=== PATIENT | female | born 1960 | race Caucasian/White ===

== ENCOUNTER 2025-01-14 14:12 | Outpatient (AMB) | payer OTHER, SELFPAY ==
--- NOTE | 2025-01-14 14:23 | MHC.OFFVIS ---
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: No Accompanied by: Self / Same As Patient Allergies bee venom protein (honey bee) Allergy (Severe, Verified 01/14/25 08:56) Anaphylaxis atomoxetine Allergy (Unknown, Verified 01/14/25 09:57) Unknown diatrizoate meglumine Allergy (Unknown, Verified 01/14/25 09:57) Unknown diatrizoic acid Allergy (Unknown, Verified 01/14/25 09:57) Difficulty Breathing ferumoxides Allergy (Unknown, Verified 01/14/25 09:57) Difficulty Breathing ferumoxsil Allergy (Unknown, Verified 01/14/25 09:57) Difficulty Breathing gabapentin Allergy (Unknown, Verified 01/14/25 09:57) Mental status change Gadolinium-Containing Contrast Medi Allergy (Unknown, Verified 01/14/25 09:57) Difficulty Breathing gadoteridol Allergy (Unknown, Verified 01/14/25 09:57) Difficulty Breathing gadoversetamide Allergy (Unknown, Verified 01/14/25 09:57) Difficulty Breathing Iodinated Contrast Media Allergy (Unknown, Verified 01/14/25 09:57) Throat swelling iodixanol Allergy (Unknown, Verified 01/14/25 09:57) Difficulty Breathing iohexol Allergy (Unknown, Verified 01/14/25 09:57) Difficulty Breathing iopromide Allergy (Unknown, Verified 01/14/25 09:57) Difficulty Breathing iothalamic acid Allergy (Unknown, Verified 01/14/25 09:57) Difficulty Breathing ioversol Allergy (Unknown, Verified 01/14/25 09:57) Difficulty Breathing levetiracetam Allergy (Unknown, Verified 01/14/25 09:57) Unknown mangafodipir Allergy (Unknown, Verified 01/14/25 09:57) Difficulty Breathing methylphenidate Allergy (Unknown, Verified 01/14/25 09:57) Unknown mold Allergy (Unknown, Verified 01/14/25 09:57) Difficulty Breathing pollen extracts Allergy (Unknown, Verified 01/14/25 09:57) Difficulty Breathing ropinirole Allergy (Unknown, Verified 01/14/25 09:57) Unknown sumatriptan Allergy (Unknown, Verified 01/14/25 08:56) throat swelling topiramate Allergy (Unknown, Verified 01/14/25 09:57) kidney stones [id number] Antimigraine Agents Allergy (Unknown, Verified 01/14/25 09:57) Angioedema cefazolin Adverse Reaction (Unknown, Verified 01/14/25 09:57) GI upset codeine Adverse Reaction (Unknown, Verified 01/14/25 09:57) GI upset naproxen Adverse Reaction (Unknown, Verified 01/14/25 09:57) skin crawling oxybutynin Adverse Reaction (Unknown, Verified 01/14/25 09:57) dry mouth Penicillins Adverse Reaction (Unknown, Verified 01/14/25 09:57) yeast infection aerosol spray Allergy (Unknown, Uncoded 01/14/25 09:57) Difficulty Breathing atomoxetine Allergy (Unknown, Uncoded 01/14/25 09:57) Dyspnea ivory soap Allergy (Unknown, Uncoded 01/14/25 09:57) Itching HPI HPI Chronic pain: Details: The patient is a 64-year-old female presenting with chronic and diffuse pain syndromes. She has a complex medical history involving multiple surgical procedures, including bilateral knee replacements, rotator cuff surgeries, and ankle surgeries, typically due to instability and chronic pain issues. Her generalized pain significantly impacts her daily living activities, with referrals to interventional pain management previously resulting in variable relief. She reports neuropathy and pain in multiple areas including hands, feet, and neck, often associating nerve-related symptoms with her diagnosed condition of sarcoidosis. Multiple interventions have been previously attempted, such as injections, with some temporary relief. Osteopathic and acupuncture methods have provided some benefit, but limited access and insurance coverage restrict usage. Her treatment regimen is further complicated by fibromyalgia and a past history of severe joint degeneration necessitating various orthopedic surgeries. Despite trials with analgesia, ongoing pain remains a significant burden, affecting her functional ability and sleep quality. Patient also reports history of postoperative complications affecting multiple aspects of her daily life, including urinary and fecal incontinence exacerbated by muscle relaxants post-surgery. She previously used Flexeril with success prior to the surgical intervention. Her chronic pain persists, affecting her range of activities such as driving, cooking, and housekeeping tasks. Anxiety and depression management has been further compromised due to recent environmental changes following an inadequately managed relocation, contributing to her increased depression. Despite attempts to maintain her routine activities, including cooking and meal prep, severe pain remains a prohibitive factor. She currently in physical therapy once per week for chronic back pain without significant improvement so far. Patient previously was seen at [facility] and [facility] and received injection with mixed results. She reports she has passed behavioral evaluation at [facility] in August 2024 for plans for SCS trial but has developed left lower extremity pain with swelling. She has upcoming Endovascular evaluation at [facility] on 02/03/25 and therefore SCS trial has been paused. Patient also reports pending cervical spine MRI and Neurosurgical re-evaluation at [facility] for worsening neck pain with radiculopathy. Denies any fever or chills, abdominal or groin pain, bladder or bowel dysfunction, or saddle anesthesia. - Onset: Variable following multiple surgeries over the years - Quality: Described as nerve pain, shooting, piercing, and diffuse body pain - Primary Location: Affects multiple areas including knees, shoulders, neck, hands, feet, and back - Radiation: Spreads from extremities to the core, impacting entire limbs and occasionally head with migraines - Exacerbating Factors: Activity, standing for prolonged periods, weather changes (icy/muddy conditions) - Alleviating Factors: Osteopathic manipulative therapy, acupuncture, rest, and specific pain management interventions - Impact: Severe limitation in daily activities and sleep, increased fall risk and instability - Affect: Pain significantly impacts mood, contributing to emotional distress and frustration. Worsening anxiety and depressive episodes due to home environment and persistent pain issues. - Analgesia: Historical use of multiple analgesics, including injections with limited and temporary efficacy; current regimen details not explicitly provided. Fear of incontinence preventing use of effective muscle relaxants experienced in past. - Adverse Effects: Previous medication, Pregabalin, caused blurred vision and near-fall episodes; no specific current adverse effects reported - Activities of Daily Living: Severe interference with daily activities; reliant on aids for mobility; independent living compromised by pain and fall risk. Severely impacted, difficulties in managing household tasks, pain prevents driving and independent ambulation. - Aberrant Drug Related Behaviors: No current reports or allegations of medication misuse; history of long-term use for surgical pain without evidence of overuse [facility] Medical History (Updated 01/15/25 @ 15:48 by LITTLE Stokes) Chronic neck and back pain Other chronic pain Allodynia Myofascial muscle pain Allergic conjunctivitis Right leg pain Sternal pain Pulmonary nodule Cervical neck pain with evidence of disc disease Weight gain Pain in both shoulders Bilateral wrist pain Bilateral hand pain Bilateral knee pain Poor balance Vertigo Paresthesia of both feet Leg pain, bilateral Chronic pain Fecal incontinence Pain of left breast Candidal intertrigo TMJ (temporomandibular joint disorder) Pain of left upper extremity Chronic right shoulder pain Vaginal pruritus Left-sided chest wall pain Hyperglycemia Recurrent acute sinusitis Immunosuppressed status Inflammatory arthritis Allergic rhinitis Bilateral occipital neuralgia Opioid use disorder Hemorrhoids Obesity IBS (irritable bowel syndrome) Vitamin D deficiency Chronic vasomotor rhinitis Sarcoidosis GERD (gastroesophageal reflux disease) Absence of sensation Arthralgia of hip Hemoglobinopathy Chronic interstitial cystitis Vulvodynia Mild depression Arthropathy of hand Arthropathy of ankle and foot Chronic eczematous otitis externa Abnormal antinuclear antibody titer Spondylosis of cervical spine Recurrent falls Sjogren syndrome Mixed stress and urge urinary incontinence Asthma Trochanteric bursitis Myopathy Fibromyalgia Arthritis Anxiety Infiltrate of lung present on imaging of chest Mild obstructive sleep apnea Restless leg syndrome Migraine Narcolepsy Palpitations Atrophic vaginitis Small fiber neuropathy Rotator cuff tendinitis Attention deficit disorder (ADD) without hyperactivity Lateral epicondylitis of right elbow Chronic neck pain Major depression Neuroforaminal stenosis of lumbar spine Lumbar facet arthropathy Hypertension Hair changes Surgical History (Updated 01/15/25 @ 15:53 by LITTLE Stokes) History of ankle surgery H/O rotator cuff surgery History of total bilateral knee replacement Social History Alcohol intake: current Alcohol intake frequency: holidays/special occasions only Patient Tobacco Use Status: Never used Tobacco Review of Systems Const Details: - Neurological: Reports intermittent muscle spasms. Reports migraines, nerve pain symptoms, and issues with balance leading to falls - Psychological: Reports anxiety and depression due to personal and environmental changes. Reports frustration and dissatisfaction with current pain management progress - Musculoskeletal: Reports chronic pain in shoulder and hands. Reports widespread musculoskeletal pain and weakness; reported numbness and tingling, primarily in extremities - Gastrointestinal: Reports fecal incontinence associated with medication use. Reports past surgical history, sarcoidosis affecting internal organs; effect on digestive health not elaborated - Urinary: Reports urinary incontinence associated with medication use. - General: Reports inability to perform daily activities due to constant pain. -Sleep: Reports difficulty sleeping and frequent use of sedatives such as NyQuil for sleep assistance All systems reviewed & are unremarkable except as noted in HPI and below Physical Exam Vital Signs: Last Vital Signs Pulse 94 01/14/25 14:32 BP 125/76 01/14/25 14:32 Pulse Ox 97 01/14/25 14:32 Oxygen Delivery Method Room Air 01/14/25 14:32 BMI result Body Mass Index 33.2 General: Appears afebrile. Alert and oriented. Mood and affect appropriate. Follows and participates in conversation appropriately. Respiratory effort is unlabored. No cough. Able to transition from sit to stand unassisted. Ambulates with bilaterally normal heel strike and toe off, reports LLE weakness and pain with edema. General: Yes no CVA tenderness Back/Spine/Pelvis Other: Limited lumbar ROM due to pain. Lumbar flexion and extension reproduce moderate-severe pain. Facet loading positive bilaterally. Multiple widespread TTPs 16/16 bilaterally, including upper and lower extremities. Back: no CVA tenderness Cervical Spine: cervical ROM normal, cervical muscular tenderness, pain with cervical ROM, cervical spasm and Cervical spine tenderness Thoracic/Lumbar Spine: thoracic and lumbar spine normal to inspection, No Thoracic/lumbar spine scar(s), pain with thoraco-lumbar ROM, paraspinal muscle tenderness, thoraco-lumbar ROM limited, No thoracic spinal tenderness and lumbar spinal tenderness at L4 and at L5 Pelvis: buttock tenderness bilaterally Sacroiliac joints: bilaterally tender to palpation Extrem General: Yes capillary refill normal, Yes calf tenderness (LLE), No clubbing, No cyanosis and Yes edema (LLE +1-+2) Results Reviewed Results Reviewed: - Tests and Procedures: Prior EMG studies performed at [facility]; results not available - Imaging: Prior MRIs of the spine and joint areas performed at [place]; results not available Assessment & Plan Assessment & Plan (1) Chronic pain syndrome: Code(s): G89.4 - Chronic pain syndrome Category: Medical (2) Chronic neck and back pain: Code(s): M54.2 - Cervicalgia; M54.9 - Dorsalgia, unspecified; G89.29 - Other chronic pain Category: Medical (3) Lumbar facet arthropathy: Code(s): M47.816 - Spondylosis without myelopathy or radiculopathy, lumbar region Category: Medical (4) Neuroforaminal stenosis of lumbar spine: Code(s): M48.061 - Spinal stenosis, lumbar region without neurogenic claudication Category: Medical (5) Paresthesia of both feet: Code(s): R20.2 - Paresthesia of skin Category: Medical (6) Myofascial muscle pain: Code(s): M79.18 - Myalgia, other site Category: Medical (7) Pain and swelling of left lower extremity: Code(s): M79.605 - Pain in left leg; M79.89 - Other specified soft tissue disorders Category: Medical Plan I discussed with the patient the need to follow through scheduled Vascular evaluation at [facility], which is essential before pursuing any spinal cord stimulation interventions. We discussed the previous psychological evaluation's validity, which patient completed in August 2024, as a prerequisite component for potential SCS trial and implant. Patient is intersted in SCS trial as next steps. We will request medical release for prior injections, procedures and spine and joint imaging from [facility], [facility], PCP office and [facility]. I also highlighted the importance of interdisciplinary collaboration through existing specialists across orthopedics, osteopathic medicine and neurology, specifically to refine the treatment approach. Cooperation with these services will help align additional therapeutic measures upon reviewing the Vascular evaluation, supporting a cohesive, targeted treatment foundation for her complex chronic pain. I have informed this patient that I do not offer opioid prescribing. All questions and concerns have been answered and patient agreed with the plan. Follow up after Endovascular evaluation and sooner as needed. Patient was informed and verbally consented to the use of an ambient scribe for clinic note documentation during this visit. Patient Instructions: - Seek mental health support or counseling to address the stress related to environmental changes, depression and anxiety. - Ensure an organized, clutter-free living space as it may alleviate anxiety exacerbations and depressive states. Ensure home safety to minimize fall risk and consider assistance when navigating stairs or uneven surfaces. - Attempt small, manageable daily activities to improve independence. - Complete the scheduled vascular evaluation at [facility] as scheduled. Plan for SCS trial once obtain Vascular clearance and confirm validity of recent behavioral evaluation. - Continue current pain management routine as prescribed and consult me with any exacerbations. - Follow up with referrals as scheduled and maintain communication with all specialists involved, including neurology, neurosurgery and orthopedics. - Maintain a symptom journal to track pain levels and response to interventions before next visit. Coding Level of Care Code New Pt Level 4 (11000) Complex EM visit Add On G2211 Diagnoses Chronic pain syndrome G89.4 Chronic neck and back pain M54.2; M54.9; G89.29 Lumbar facet arthropathy M47.816 Neuroforaminal stenosis of lumbar spine M48.061 Paresthesia of both feet R20.2 Myofascial muscle pain M79.18 Pain and swelling of left lower extremity M79.605; M79.89
[2025-01-14 14:32] VITALS: BP 125/76; PULSE 94; O2SAT 97; BMI 33.2
--- OUTSIDE RECORDS SUMMARY | 2025-01-14 17:28 | XMS_ITS | Data Portability ---
Author Organization [place] [employer] 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 Plan of Treatment Reminders Order Date Submit Date Provider Last Modified By Organization Details Last Modified Time Details Appointments None recorded. Lab microalbum in, urine 2018 019 [facility], [address] [place] [address], [address], 9 20:15:26 CMP, serum or plasma 2018 019 [facility], [address] [place] [address], [address], 9 19:38:07 urinalysis , dipstick 2018 019 [email or web address] In-Office Order, Internal Use Only DO Not Attach Compendium DO Not Attach Compendium, Do Not Delete/merge, [id number] 9 11:06:36 Referral rheumatolo gist referral 2018 019 [email or web address] Not available 9 15:01:07 orthopedic referral 2018 019 BRICE Not available 9 11:58:04 rheumatolo gist referral 2018 019 ochoa Quintero MD, [address] [place] [address] [address], [place], [address], 0 09:07:51 Procedures nebulizer treatment (PROC) 2018 019 KIMBALL In-Office Order, Internal Use Only DO Not Attach Compendium DO Not Attach Compendium, Do Not Delete/merge, [id number] 9 15:02:51 Surgeries None recorded. Imaging XR, chest, 2 view 2018 019 [facility] ([facility] Scheduling), [address], [place], [address], 9 14:54:09 Medication Orders verapamil ER (SR) 120 mg tablet,ext ended release 2018 019 [email or web address] [id number], [address] [facility] [place], [address], 9 15:01:07 omeprazole 20 mg capsule,de layed release 2018 019 INTERFACE [id number], [address] [facility] [place], [address], 9 13:56:02 ipratropiu m 0.5 mg-albuter ol 3 mg (2.5 mg base)/3 mL nebulizati on soln 2018 019 [email or web address] Not available 9 10:42:04 Patient TargetsNo targets recorded. 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 Sj? ? 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 Fibromyalgia Referring Physician: Family Carolynn Wood, [phone] Encounter Date: 03/14/2019 Orthopedic Referral for Pain in right knee Referring Physician: Family Carolynn Wood, [phone] Encounter Date: 03/14/2019 Results Created Date Observation Date Name Description Value Unit Range Abnormal Flag Note LastModifiedBy Organization Detail LastModifiedTime 02/27/20 19 02/26/2019 urina lysis , dipst ick Leukocytes Negati ve Not Available In-Office Order Internal Use Only DO Not Attach Compendium DO Not Attach Compendium, Do Not Delete/merge, 02/26/2019 10:12:39 02/27/20 19 02/26/2019 urina lysis , dipst ick Nitrite negati ve Not Available In-Office Order Internal Use Only DO Not Attach Compendium DO Not Attach Compendium, Do Not Delete/merge, 02/26/2019 10:12:39 02/27/20 19 02/26/2019 urina lysis , dipst ick Urobilinogen .2 Not Available In-Of fice Order Internal Use Only DO Not Attach Compendium DO Not Attach Compendium, Do Not Delete/merge, 02/26/2019 10:12:39 02/27/20 19 02/26/2019 urina lysis , dipst ick Protein Negati ve Not Available In-Office Order Internal Use Only DO Not Attach Compendium DO Not Attach Compendium, Do Not Delete/merge, 02/26/2019 10:12:39 02/27/20 19 02/26/2019 urina lysis , dipst ick pH 7.0 Not Available In-Office Order Internal Use Only DO Not Attach Compendium DO Not Attach Compendium, Do Not Delete/merge, 02/26/2019 10:12:39 02/27/20 19 02/26/2019 urina lysis , dipst ick Blood Non-He molyze d: Trace Not Available In-Office Order Internal Use Only DO Not Attach Compendium DO Not Attach Compendium, Do Not Delete/merge, 02/26/2019 10:12:39 02/27/20 19 02/26/2019 urina lysis , dipst ick Specific [place] 1.020 Not Available In-Off ice Order Internal Use Only DO Not Attach Compendium DO Not Attach Compendium, Do Not Delete/merge, 02/26/2019 10:12:39 02/27/20 19 02/26/2019 urina lysis , dipst ick Ketone Negati ve Not Available In-Office Order Internal Use Only DO Not Attach Compendium DO Not Attach Compendium, Do Not Delete/merge, [id number] 02/26/2019 10:12:39 02/27/2002/26/2019 urina lysis , dipst ick Bilirubin Negati ve Not Available In-Office Order Internal Use Only DO Not Attach Compendium DO Not Attach Compendium, Do Not Delete/merge, [id number] 02/26/2019 10:12:39 02/27/2002/26/2019 urina lysis , dipst ick Glucose Negati ve Not Available In-Office Order Internal Use Only DO Not Attach Compendium DO Not Attach Compendium, Do Not Delete/merge, [id number] 02/26/2019 10:12:39 03/14/2003/14/2019 CMP, serum or plasm a glucose 62 mg/dL 70-100 low Not Available [address] [place] [address], [address], 03/14/2019 19:38:07 03/14/2003/14/2019 CMP, serum or plasm a BUN 12 mg/dL 6-21 normal Not Available [address] [place] [address], [address], 03/14/2019 19:38:07 03/14/2003/14/2019 CMP, serum or plasm a creatinine 0.91 mg/dL 0.0-1. 2 normal Not Available [address] [place] [address], [address], 03/14/2019 19:38:07 03/14/2003/14/2019 CMP, serum or plasm a glomerular filtration rate > 60 normal Units : mL/mi n/1.7 3 m2 Estim ated GFR (eGFR ) shoul d not be used for patie nts with acute kidne y injur y or ESRD (crea tinin e shoul d be at stead y state and stabl e to use). eGFR is calcu lated using the 2009 CKD-E PI creat inine equat ion, which is now the recom elpidio d equat ion to estim ate GFR based on creat inine per lates t KDIGO (Kidn ey Disea se Impro ving Globa l Outco mes) Guide lines . KDIGO recom mends CKD now be class ified based on cause , GFR categ ory, and album inuri a categ ory. GFR categ ories will not be repor cassidy by the lab for G1 or G2 (eGFR >60). GFR categ ories shoul d be assig hannah as: eGFR 45-59 = G3a (mild ly to moder ately decre ased) , eGFR 30-44 = G3b (mode ratel y to sever harman decre ased) , eGFR 15-29 G4 (hanny rely decre ased) , eGFR< 15 G5 (kidn ey failu re). Not Available [address] [place] [address], [address], 03/14/2019 19:38:07 03/14/2003/14/2019 CMP, serum or plasm a calcium 9.4 mg/dL 8.1-10 .4 normal Not Available [address] [place] [address], [address], 03/14/2019 19:38:07 03/14/2003/14/2019 CMP, serum or plasm a total protein 6.8 g/dL 6.1-8. 2 normal Not Available [address] [place] [address], [address], 03/14/2019 19:38:07 03/14/2003/14/2019 CMP, serum or plasm a albumin 3.9 g/dL 2.9-4. 7 normal Not Available [address] [place] [address], [address], 03/14/2019 19:38:07 03/14/2003/14/2019 CMP, serum or plasm a alkaline phosphatase 147 IU/L 18-210 normal Not Available [address] [place] [address], [address], 03/14/2019 19:38:07 03/14/2003/14/2019 CMP, serum or plasm a SGOT (AST) 20 IU/L 15-37 normal Not Available [address] [place] [address], [address], 03/14/2019 19:38:07 03/14/20 19 03/14/2019 CMP, serum or plasm a bilirubin total 0.5 mg/dL 0.2-1. 3 normal Not Available [address] [place] [address], [address], 03/14/2019 19:38:07 03/14/2003/14/2019 CMP, serum or plasm a SGPT (ALT) 27 IU/L 13-56 normal Not Available [address] [place] [address], [address], 03/14/2019 19:38:07 03/14/2003/14/2019 CMP, serum or plasm a sodium 143 mEq/L 135-14 5 normal Not Available [address] [place] [address], [address], 03/14/2019 19:38:07 03/14/2003/14/2019 CMP, serum or plasm a potassium 4.4 mEq/L 3.5-5. 1 normal Not Available [address] [place] [address], [address], 03/14/2019 19:38:07 03/14/2003/14/2019 CMP, serum or plasm a chloride 109 mEq/L 98-112 normal Not Available [address] [place] [address], [address], 03/14/2019 19:38:07 03/14/2003/14/2019 CMP, serum or plasm a CO2 29 mEq/L 20-32 normal Not Available [address] [place] [address], [address], 03/14/2019 19:38:07 03/14/2003/14/2019 CMP, serum or plasm a anion gap 5 mEq/L 5-15 normal Not Available [address] [place] [address], [address], 03/14/2019 19:38:07 03/14/2003/14/2019 micro album in, urine creatinine, urine mg/dL 189 mg/dL normal Not Available [address] [place] [address] [address] [place] [address], [address], 03/14/2019 20:15:26 03/14/20 19 03/14/2019 micro album in, urine microalbumin 20.8 mcg/m L normal The Micro album in/Cr eatin ine ratio only shoul d be used to guide medic al thera py and NOT the Micro album in level alone . Not Available [address] [place] [address] [address] [place] [address], [address], 03/14/2019 20:15:26 03/14/20 19 03/14/2019 micro album in, urine microalb/cre a ratio 11.0 ratio 0.0-34 .2 normal Not Available [address] [place] [address], [address], 03/14/2019 20:15:26 03/14/20 19 03/14/2019 peak flow* Pre (L/min) 200,22 0,230 Not Available In-Office Order Internal Use Only DO Not Attach Compendium DO Not Attach Compendium, Do Not Delete/merge, [id number] 03/14/2019 14:00:50 10/10/20 19 10/10/2019 fecal occul t blood , stool stool occult blood - single NEGATI VE negati ve normal Not Available [address] [place] [address], [address], 10/10/2019 23:43:52 10/10/20 19 10/11/2019 C diff toxin DNA, stool C difficile by PCR, stool NEGATI VE negati ve normal C. Diffi cile targe t DNA seque nces are not detec cassidy. Speci men: Unfor med Stool Comme nt: The C. diffi cile PCR assay is an in vitro diagn ostic test for quali tativ e detec tion of toxin produ cing Clost ridiu m diffi cile direc tly from stool speci mens of patie nts suspe cted of havin g Clost ridiu m diffi cile infec tion. The assay detec ts the toxin B gene (tcdB ). Perfo rmanc e aamnda leiri stics for this indigo were not estab lishe d for patie nts less than 2 years of age. Inhib ition of the Xpert C. diffi cile assay has been obser elena in the [facility] : Zinc Oxide paste and Vagis il cream . Not Available [address] [place] [address] [address] [place] [address], [address], 10/11/2019 09:40:05 10/10/20 19 10/11/2019 gastr ointe carey l patho gens panel , PCR, stool campylobacte r PCR NOT DETECT ED notdet ectd normal Not Available [address] [place] [address], [address], 10/11/2019 10:59:01 10/10/20 19 10/11/2019 gastr ointe carey l patho gens panel , PCR, stool cdif toxin A/B PCR See Commen t notdet ectd normal Test Not Perfo rmed If C.dif ficil e PCR testi ng is neces laure pleas e order C.dif ficil e PCR (CDIF F). Not Available [address] [place] [address], [address], 10/11/2019 10:59:01 10/10/20 19 10/11/2019 gastr ointe carey l patho gens panel , PCR, stool plesiomonas shigelloides PCR NOT DETECT ED notdet ectd normal Not Available [address] [place] [address] [address] [place] [address], [address], 10/11/2019 10:59:01 10/10/20 19 10/11/2019 gastr ointe carey l patho gens panel , PCR, stool salmonella PCR NOT DETECT ED notdet ectd normal Not Available [address] [place] [address], [address], 10/11/2019 10:59:01 10/10/20 19 10/11/2019 gastr ointe carey l patho gens panel , PCR, stool vibro PCR NOT DETECT ED notdet ectd normal Not Available [address] [place] [address], [address], 10/11/2019 10:59:01 10/10/20 19 10/11/2019 gastr ointe carey l patho gens panel , PCR, stool yersinia enterocoliti ca PCR NOT DETECT ED notdet ectd normal Not Available [address] [place] [address], [address], 10/11/2019 10:59:01 10/10/20 19 10/11/2019 gastr ointe carey l patho gens panel , PCR, stool enteroaggreg ative E.coli PCR NOT DETECT ED notdet ectd normal Not Available [address] [place] [address], 6[address], 10/11/2019 10:59:01 10/10/20 19 10/11/2019 gastr ointe carey l patho gens panel , PCR, stool enteropathog enic E.coli PCR NOT DETECT ED notdet ectd normal Not Available [address] [place] [address], [address], 10/11/2019 10:59:01 10/10/20 19 10/11/2019 gastr ointe carey l patho gens panel , PCR, stool enterotoxige aquilino E.coli PCR NOT DETECT ED notdet ectd normal Not Available [address] [place] [address], [address], 10/11/2019 10:59:01 10/10/20 19 10/11/2019 gastr ointe carey l patho gens panel , PCR, stool shiga-like toxin E.coli (stec) NOT DETECT ED notdet ectd normal Not Available [address] [place] [address], [address], 10/11/2019 10:59:01 10/10/20 19 10/11/2019 gastr ointe carey l patho gens panel , PCR, stool shigella/E.c mary (eiec) NOT DETECT ED notdet ectd normal Not Available [address] [place] [address], [address], 10/11/2019 10:59:01 10/10/20 19 10/11/2019 gastr ointe carey l patho gens panel , PCR, stool cryptosporid ium PCR NOT DETECT ED notdet ectd normal Not Available [address] [place] [address], 13596, 10/11/2019 10:59:01 10/10/20 19 10/11/2019 gastr ointe carey l patho gens panel , PCR, stool cyclospora cayetanensis PCR NOT DETECT ED notdet ectd normal Not Available [address] [place] [address], [address]79[address], 10/11/2019 10:59:01 10/10/20 19 10/11/2019 gastr ointe carey l patho gens panel , PCR, stool E. histolytica PCR NOT DETECT ED notdet ectd normal Not Available [address] [place] [address], 912[address], 10/11/2019 10:59:01 10/10/20 19 10/11/2019 gastr ointe carey l patho gens panel , PCR, stool giardia lamblia PCR NOT DETECT ED notdet ectd normal Not Available [address] [place] [address], [address]671, 10/11/2019 10:59:01 10/10/20 19 10/11/2019 gastr ointe carey l patho gens panel , PCR, stool adenovirus F 40/41 PCR NOT DETECT ED notdet ectd normal Not Available [address] [place] [address], 48446, 10/11/2019 10:59:01 10/10/20 19 10/11/2019 gastr ointe carey l patho gens panel , PCR, stool astrovirus PCR NOT DETECT ED notdet ectd normal Not Available [address] [place] [address], [address], 10/11/2019 10:59:01 10/10/20 19 10/11/2019 gastr ointe carey l patho gens panel , PCR, stool norovirus GI/gii PCR NOT DETECT ED notdet ectd normal Not Available [address] [place] [address], 97[address], 10/11/2019 10:59:01 10/10/20 19 10/11/2019 gastr ointe carey l patho gens panel , PCR, stool rotavirus A PCR NOT DETECT ED notdet ectd normal Not Available [address] [place] [address], [address], 10/11/2019 10:59:01 10/10/20 19 10/11/2019 gastr ointe carey l patho gens panel , PCR, stool sapovirus PCR NOT DETECT ED notdet ectd normal ----- ----- -- ADDIT IONAL INFOR MATIO N ----- ----- -- This assay is perfo rmed using the FDA-c leare d FilmA rray GI Panel ([employer] . Not Available [address] [place] [address], [address], 10/11/2019 10:59:01 01/11/20 19 01/10/2019 MAMMO , scree amber, digit al, bilat [facility] IMAGIN G CTR DIAGNO STIC IMAGIN G DEPART MENT [address] [facility] [place]. [address] - Patiilene t: KI YAÑEZ Phone: Exam Date:0 9 Exam: Dig Mammo Screen tita POWER Attend tita Cantu:JACKIE GAN :[birth year] Age/Se x: 58/F Moe hess M.D.:JACKIE GAN E.DSherley Attend tita Cantu: Waqar Cantu: Marlene HUTCHINS X-Ray #: [id number] Locati on: RAD.NA Other Locati on: Clinic al Histor y: ROUTIN E #[id number] 62.001 - DIG MAMMO SCREEN ING MARY MA DI BILATE RAL DIGITA L SCREEN ING MAMMOG BRYSON WITH CAD: 01/11/20 19 Compar rashel is made to exams dated: 01/06/20 18 mammog bryson, 017 mammog bryson, 015 mammog bryson - Irma amato [facility], and 11/08/19 14 mammog bryson - [facility] . There are scatte red fibrog landul ar elemen ts in both breast s. Curren t study was also evalua cassidy with a Comput er Aided Detect ion (CAD) system . No suspic ious masses , calcif icatio ns, or other findin gs are seen in either breast . IMPRES MACIEL: NEGATI VE There is no mammog raphic eviden ce of malign antonio. A 1 year screen ing mammog bryson is recomm ended. RISK ASSESS MENT: Based on the NCI/NS ABP BCRA tool, this patien t's calcul ated lifeti me risk for develo ping breast cancer is 5.9%. The patien t will be notifi ed of the result s by mail. This exam was interp reted at [facility] . Richard Aranda M.D. cl/matthew rad:01/10/2019 14:27: 14 [facility] Techno logist : Irma Dias rn [facility] letter sent: A1 Mammog megan Normal Mammog bryson BI-RAD S: 1 Negati ve Access ion Number : [id number] 2.001 Transc ribed by: [place] Interp reting Physic francisco: RICHARD ARANDA MD Electr onical ly Signed by: RICHARD ARANDA MD on 1427 Rec'd in [facility] on : 1426 Techno logist : DD Exam CPT #: [id number] O,Orde r #: [id number] Report #: [id number] Med Rec#:[id number] Report Status : Signed [email or web address] [facility] (Radiology) [address] [place] [address], [address], 01/11/2019 10:28:20 02/01/20 19 01/31/2019 XR, chest , 2 view [facility] calry ERAZO RN [facility] IMAGIN G CTR DIAGNO STIC IMAGIN G DEPART MENT [address] [place]. [address] - Patien t: KI YAÑEZ Phone: Exam Date:0 9 Exam: CHEST PA/LAT XR Attend tita Cantu:JACKIE GAN :[birth year] Age/Se x: 58/F Orderi jimena Cantu:JACKIE GAN E.DSherley Attend tita Cantu: Waqar Cantu: Marlene HUTCHINS X-Ray #: [id number] Locati on: RAD.NA Other Locati on: Clinic al Histor y: UPPER RESPIR ATORY INFECT ION TWO VIEW CHEST RADIOG RAPHS, 019 2:13 PM CLINIC AL INDICA TION: 58 years old. UPPER RESPIR ATORY INFECT ION. COMPAR RASHEL: 019. IMPRES MACIEL: The cardio medias tinal silhou ette is stable . No pleura l effusi on or pneumo thorax identi fied. No focal consol idatio n or edema identi fied. Statio n: BEXDS1 02 Access ion Number : [id number] 8.001 Transc ribed by: PS Interp reting Physic francisco: ALAINA JOHNSON MD Electr onical ly Signed by: Brayden JOHNSON MD on 1446 Rec'd in [facility] on : 1446 Techno logist : CW Exam CPT #: [id number] O,Orde r #: [id number] Report #: [id number] Med Rec#:M [id number] Report Status : [facility] (Radiology[address], [address], 01/31/2019 16:28:29 05/17/20 19 05/15/2019 XR, lower extre mity No observ ation record ed. [email or web address] Not Available 2018 14:15:53 05/17/20 19 05/15/2019 XR, ankle + foot No observ ation record ed. [email or web address] Not Available 2018 14:16:13 05/17/20 19 05/15/2019 CT, head, w/o contr ast No observ ation record ed. [email or web address] Not Available 05/06 09:27:08 08/15/2008/15/2019 imagi ng/di agnos tic resul t No observ ation record ed. [email or web address] Not Available 2018 14:47:47 Result Notes None recorded. Problems Name Problem SNOMED Code Status Onset Date Resolution Date Notes Provider Name and Address Organization Details Recorded Time Osteoart hritis 275084439 Active 2017 Becky alba [facility] [employer] [facility] 8 13:42:02 Xerostom ia 66060502 Active 2017 Becky alba [facility] [employer] [facility] 8 13:42:10 Neck pain 42007690 Completed 201707/15/2019 Removal Reason: Yany Hoffmann MD [address] [place] [address], [address], [facility] [employer] 9 14:12:35 Obstruct iram sleep apnea syndrome 91198485 Completed 201707/15/2019 Removal Reason: Yany Hoffmann MD [address] [place] [address], [address], [facility] [employer] 9 13:37:52 Sarcoido sis 78086187 Completed 201711/29/2018 ROSALEE Wood-[address], [address], [facility] [employer] 9 20:26:49 Vitamin D deficien 30628353 Active 2017 Becky alba, [facility] [employer] [facility] 8 13:43:02 Fibromya lgia 596412819 Active 2017 Becky Mcclendon null, [facility] 8 13:43:10 Fatigue 97031902 Active 2017 Becky alba, [facility] [employer] 8 13:43:19 Abdomina l pain 21505992 Completed 201707/15/2019 Removal Reason: bharath Hoffmann MD [address] [place], [address], [facility] [employer] [facility] 9 14:12:01 Chronic back pain 589165971 Active 2017 Becky alba, [facility] [employer] [facility] 8 13:43:42 Weight gain 6814912 Active 2017 Becky alba, [facility] [employer] [facility] 8 13:43:53 Irritabl e bowel syndrome 41494619 Active 2017 Becky alba, [facility] [employer] [facility] 8 13:43:59 Anxiety 54115059 Active 2017 Becky alba, [facility] [employer] [facility] 8 13:44:06 Incontin ence 99909702 Completed 201712/27/2018 ROSALEE WoodISAIAS [address] [place] [address], [address], [facility] [employer] [facility] 9 20:24:42 Attentio n deficit hyperact ivity disorder , predomin antly inattent iram type 79507032 Active 2017 Becky Goodwintristin anjali, [facility] [employer] [facility] 8 13:44:31 Asthma 410402960 Active 2017 Becky alba, [facility] [employer] [facility] 8 13:44:37 Migraine 34629348 Completed 201711/29/2018 SHEILA Wood [address] [place] [address], [address], [facility] [employer] 9 20:26:44 Bipolar disorder 29331583 Completed 201707/15/2019 Removal Reason: patient says it is incorrec t Shivani Hoffmann MD [address] [place] [address], [address], [facility] [employer] 9 13:33:07 Pain in right knee Completed 201707/15/2019 Removal Reason: duplicat cipriano Shivani Hoffmann MD [address] [place] [address], [address], [facility] [employer] 9 14:11:43 Snoring 04488226 Active 2017 ROSALEE WoodISAIAS [address] [place] [address], [address], [facility] [employer] 8 20:07:23 Multiple joint pain 24649650 Active 2017 ROSALEE WoodISAIAS [address] [place] [address], [address], [facility] [employer] 8 20:07:25 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 33979838 Active 2017 ROSALEE WoodISAIAS [address] [place] [address], [address], [facility] [employer] 8 20:08:14 Tinnitus 31015725 Active 2017 SHEILA Wood [address] [place] [address], [address], [facility] [employer] 8 20:09:10 Deviated nasal septum 021200662 Active 2017 ROSALEE WoodISAIAS [address] [place] [address], [address], [facility] [employer] 8 20:09:31 Dental caries 71001545 Active 2017 SHEILA Wood [address] [place] [address], [address], [place] [employer] 8 20:09:53 Complex care needs 059333558 Completed 201707/15/2019 Removal Reason: not a diagnosi s Shivani Hoffmann MD [address] [place] [address], [address], [facility] [employer] 9 13:37:08 Female stress incontin ence 94789297 Active [address], [address], [facility] [employer] 8 21:00:26 Lumbar radiculo jasmyn 117425139 Completed 201707/15/2019 Removal Reason: doesn't admit to this Shivani Hoffmann MD [address] [place] [address], [address], [facility] [employer] 9 13:32:16 Chronic tremor 862917521 Active 2017 ROSALEE WoodISAIAS [address] [place] [address], [address], [facility] [employer] 8 21:00:30 Pulmonar y sarcoido sis 85556277 Active 2017 ROSALEE WoodISAIAS [address] [place] [address], [address], [facility] [employer] 8 21:00:34 Abnormal vision 3429746 Active 2017 ROSALEE WoodISAIAS [address] [place] [address], [address], [facility] [employer] 8 21:09:18 Irritati on of ear 918497425 Completed 201707/15/2019 Removal Reason: resolved Shivani Hoffmann MD [address] [place] [address], [phone], [facility] [employer] 9 13:34:26 Candidia sis of mouth [id number] Completed 201711/29/[address], [address], [employer] 9 20:25:40 Gastroes ophageal reflux disease without esophagi tis 307442070 Active 2017 Sally Hutchins [address], [address], [employer] 8 12:08:01 Migraine with aura 6411703 Active 2017 Sally Reed, [address], [address], [employer] 8 12:13:11 Increase d frequenc y of urinatio n 948011566 Active 2017 Sally Hutchins [address], [address], [employer] 8 12:23:17 Easy bruising 628186547 Completed 201707/15/2019 Removal Reason: not an issue Shivani Hoffmann MD [address] [place] [address], [phone], [employer] 9 13:36:05 Family history of diabetes mellitus type 2 574105856 Active 2017 Sally Hutchins [address], [address], [employer] 8 12:25:57 Occult blood detected in feces 67180303 Completed 201703/14/2019 Sally Hutchins [address], [address], [employer] 9 15:01:07 Essentia l hyperten maciel 51083818 Active 2017 Sally Hutchins [address], [address], [employer] 8 12:28:16 Obstruct iram sleep apnea of adult 4448716694 103 Active 2017 stopped CPAP Shivani Hoffmann MD [address] [place] [address], [address], [facility] [employer] 9 13:30:05 Medicati on review done [id number] Completed 201707/15/2019 Removal Reason: not a diagnosi s Shivani Hoffmann MD [address] [place] [address], [address], [employer] 9 14:11:30 Chronic constipa tion 448911753 Completed 201707/15/2019 Removal Reason: error Shivani Hoffmann MD [address] [place] [address], [address], [facility] [employer] 9 13:35:29 Chronic low back pain 361285926 Active [address], [address], [employer] 9 20:22:00 Pain of left ankle joint 5572592723 3068434 Completed 201807/15/2019 Removal Reason: multiple joint symptoms Shivani Hoffmann MD [address] [place] [address], [address], [employer] 9 13:34:06 Pain in left knee Completed 201807/15/2019 Removal Reason: geoffreylicClement Hoffmann MD [address] [place] [address], [address], [employer] 9 14:11:20 Care plan goal agreed [id number] Completed 201807/15/2019 Shivani Hoffmann MD [address] [place] [address], [address], [employer] 9 13:38:07 Chronic pain syndrome 869011694 Active 2018 Shivani Hoffmann MD [address] [place] [address], [phone], [facility] [employer] 9 14:25:10 Problem Notes None recorded. Procedures Surgical History Date Name Laterality Status Provider Name and Address Organization Details Recorded Time Unlisted procedure shoulder completed [address], [address], [facility] [employer] [facility] 05/25/2018 11:55:19 Knee Surgery completed [address], [address], [facility] [employer] [facility] 05/25/2018 11:55:36 Ankle arthroscopy/rivas rgery completed [address], [address], [facility] [employer] [facility] 05/25/2018 11:55:48 Abdominal surgery completed [address], [address], [facility] [employer] [facility] 05/25/2018 11:55:54 Imaging Results Imaging Date Name Status LastModified by Organiz ation Details LastModified Time 01/10/2019 MAMMO, screening, digital, bilateral completed [address] (Radiology) [address] [place] [address], [address], 01/11/2019 10:28:20 01/31/2019 [facility] ([facility] [address] [place] [address], [address], 01/31/2019 16:28:29 05/15/2019 XR, lower extremity completed Information not available 05/21/2019 14:15:53 05/15/2019 XR, ankle + foot completed Information not available 05/21/2019 14:16:13 05/15/2019 CT, head, w/o contrast completed padma Information not available 05/17/2019 09:27:08 08/15/2019 imaging/diagno stic result completed [email or web address] Information not available 08/15/2019 14:47:47 Procedure Notes None recorded. Medical Equipment None Reported. Allergies Allergen ID Allergen Name Allergen Category Reaction Reaction Severity Criticality Documentation Date Start Date Code Code System Note Provider Name and Address Organization Details Recorded Time 75230 Cipro medicatio n Not available Not available Not available 03/07/201803514 3 RxNorm Becky Mcclendon null, [facility] 8 13:50:38 78868 Motrin medicatio n Not available Not available Not available 03/07/201814992 8 RxNorm Becky Mcclendon null, [facility] 8 13:50:45 20601 Easprin medicatio n Not available Not available Not available 03/07/201830285 4 RxNorm Becky Mcclendon null, [facility] 8 13:50:57 36532 codeine medicatio n Not available Not available Not available 03/07/2018 2670 RxNorm Becky Mcclendon null, [facility] 8 13:51:05 66500 Imitrex medicatio n Not available Not available Not available 03/07/201884295 3 RxNorm Becky Mcclendon null, [facility] 8 13:51:12 08203 Product containin g penicilli n (product) medicatio n Not available Not available Not available 03/07/2018 49951 8001 SNOMED Becky Mcclendon null, [facility] 8 13:51:26 09450 cefazolin sodium medicatio n Not available Not available Not available 03/07/201873237 1 RxNorm Becky Mcclendon null, [facility] 8 13:51:33 02207 Strattera medicatio n Not available Not available Not available 03/07/2018 93135 0 RxNorm Becky Mcclendon null, [facility] 8 13:51:41 87217 Celebrex medicatio n Not available Not available Not available 05/25/2018 32002 7 RxNorm Abigail Danbury [address] [place] [address], [phone] [place] [address] 8 11:45:16 94042 trazodone medicatio n Not available Not available Not available 05/25/2018 18376 RxNorm Abigail Danbury [address] [place], [address] , [facility] - [employer] [facility] 8 11:45:41 17878 Topamax medicatio n other Not available Not available 07/06/2018 20062 3 RxNorm laurie Oscar [facility] [place] - [facility] [employer] [facility] 8 16:15:44 Medications Name Sig Start Date Stop Date Status Note LastModified by Organization Details LastModified Time verapamil ER (SR) 120 mg tablet,ex tended release TAKE 1 TABLET BY MOUTH EVERY DAY IN THE MORNING active Not Available Not Available No t Available celecoxib 200 mg capsule active Not Available Not Available Not Available cyclobenz aprine 10 mg tablet TAKE 1 TABLET BY MOUTH EVERY DAY NEEDED 11/29 completed Not Available Not Available Not Available neomycin- polymyxin -hydrocor t 3.5 mg/mL-10, 000 unit/mL-1 % ear solution INSTILL 2 DROPS INTO EACH EAR EVERY 4 HOURS NEEDED 09/12 completed Not Available Not Available Not Available azelastin e 0.05 % eye drops INSTILL 1 DROP INTO BOTH EYES TWICE A DAY active Not Available Not Available No t Available nystatin 100,000 unit/mL oral suspensio n TAKE 5 ML 4 TIMES A DAY BY ORAL ROUTE DIRECTED FOR 10 DAYS 11/29 completed Not Available Not Available Not Available prednison e 10 mg tablet TAKE 3 TABS DAILY FOR 5 DAYS 03/14 completed Not Available Not Available Not Available ipratropi um 0.5 mg-albute rol 3 mg (2.5 mg base)/3 mL nebulizat ion soln Inhale 3 mL by nebuliza tion route for 1 day. 2018 active Not Available Not Available Not Avai lable albuterol sulfate 2.5 mg/3 mL (0.083 %) solution for nebulizat ion INHALE 3ML VIA NEBULIZE R EVERY 4 HOURS NEEDED FOR SHORTNES S OF BREATH OR WHEEZING active Not Available Not Available No t Available cetirizin e 10 mg tablet TAKE 1 TABLET BY MOUTH EVERY DAY active Not Available Not Available No t Available oxybutyni n chloride ER 10 mg tablet,ex tended release 24 hr TAKE 1 TABLET BY MOUTH EVERY DAY 10/02 completed Not Available Not Available Not Available fluconazo le 150 mg tablet TAKE 1 TABLET BY MOUTH ONCE AND REPEAT IN 3 DAYS 10/02 completed Not Available Not Available Not Available levetirac etam 500 mg tablet Take 1 tablet twice a day by oral route. active as needed Not Available Not Available Not Available Patanol 0.1 % eye drops INSTILL 1 DROP INTO AFFECTED EYE(S) BY OPHTHALM IC ROUTE 2 TIMES PER DAY AT AN INTERVAL OF 6 TO 8 HOURS active Not Available Not Available No t Available sucralfat e 1 gram tablet TAKE 1 TABLET BY MOUTH 4 TIMES A DAY BEFORE MEALS AND AT BEDTIME active Not Available Not Available No t Available venlafaxi ne 25 mg tablet TAKE 1 TABLET BY MOUTH AT BEDTIME 05/25 completed Not Available Not Available Not Available ondansetr on HCl 4 mg tablet TAKE 1 TABLET BY MOUTH EVERY 8 HOURS NEEDED FOR NAUSEA active Not Available Not Available No t Available prednison e 20 mg tablet 09/12 completed Not Available Not Available Not Available lidocaine HCl 2 % mucosal jelly APPLY A THIN FILM TOPICALL Y TO THE SORE AREA UP TO 6 TIMES DAILY active Not Available Not Available No t Available acetamino phen 300 mg-codein e 30 mg tablet prn 07/15 completed 03/14/19 prescrib ed by dentist Not Available Not Available Not Available doxepin 10 mg capsule TAKE 1 CAPSULE BY MOUTH EVERY DAY active Not Available Not Available No t Available sulfameth oxazole 800 mg-trimet hoprim 160 mg tablet TAKE 1 TABLET BY MOUTH TWICE A DAY FOR 10 DAYS active Not Available Not Available No t Available tramadol 50 mg tablet active Not Available Not Available Not Available meloxicam 7.5 mg tablet TAKE 1 TABLET BY MOUTH EVERY DAY active Not Available Not Available No t Available oxycodone -acetamin ophen 5 mg-325 mg tablet PLEASE SEE ATTACHED FOR DETAILED DIRECTIO NS active Not Available Not Available No t Available hydromorp chelsea 2 mg tablet TAKE 1 TABLET BY MOUTH THREE TIMES A DAY active Not Available Not Available No t Available lorazepam 0.5 mg tablet TAKE 1 TABLET BY MOUTH EVERY DAY NEEDED 11/29 completed Not Available Not Available Not Available hydrocort isone-heidi tic acid 1 %-2 % ear drops INSTILL 2 DROPS INTO AFFECTED EAR(S) BY OTIC ROUTE 4 TIMES PER DAY 11/29 completed patients insuran e does not cover (200 dollar co payment) Not Available Not Available Not Available baclofen 10 mg tablet TAKE 1 TABLET BY MOUTH 3 TIMES A DAY NEEDED active Not Available Not Available No t Available benzonata te 100 mg capsule TAKE 1 CAPSULE BY MOUTH TWICE DAILY NEEDED FOR COUGH 07/06 completed Not Available Not Available Not Available doxycycli ne monohydra te 100 mg capsule TAKE 1 CAPSULE BY MOUTH TWICE A DAY WITH MEALS FOR 7 DAYS 12/27 completed Not Available Not Available Not Available diclofena c potassium 50 mg tablet TAKE 1 TABLET BY MOUTH 3 TIMES A DAY 05/25 completed Not Available Not Available Not Available omeprazol e 20 mg capsule,d elayed release TAKE 1 CAPSULE BY MOUTH EVERY DAY active Not Available Not Available No t Available monteluka st 10 mg tablet TAKE 1 TABLET BY MOUTH EVERY DAY active Not Available Not Available No t Available clindamyc in 2 % vaginal cream active Not Available Not Available Not Available hydroxyzi ne HCl 25 mg tablet TAKE 1 TABLET BY MOUTH EVERY DAY NEEDED ANXIETY active Not Available Not Available No t Available bisacodyl 5 mg tablet,de layed release TAKE 4 TABLETS BY MOUTH ONE DOSE 10/02 completed Not Available Not Available Not Available nystatin 100,000 unit/gram topical powder APPLY TWICE A DAY DIRECTED FOLLOWIN G TREATMEN T WITH CLOTRIMA ZOLE active Not Available Not Available No t Available diazepam 10 mg tablet TAKE 1 TABLET BY MOUTH THREE TIMES A DAY NEEDED FOR MUSCLE SPASM active Not Available Not Available No t Available epinephri ne 0.3 mg/0.3 mL injection , auto-inje ctor INJECT 1 PEN IM ONCE A SINGLE DOSE MAY REPEAT ONCE active Not Available Not Available No t Available levofloxa estrella 500 mg tablet 07/15 completed Not Available Not Available Not Available oxycodone -acetamin ophen 7.5 mg-325 mg tablet TAKE 1 TABLET BY MOUTH EVERY 6 HOURS NEEDED FOR PAIN active Not Available Not Available No t Available estradiol 0.01% (0.1 mg/gram) vaginal cream APPLY / APPLICAT ORFUL (1GM) VAGINALL Y THREE TIMES WEEKLY active Not Available Not Available No t Available methylpre dnisolone 4 mg tablets in a dose pack USE DIRECTED 02/26 completed Not Available Not Available Not Available albuterol sulfate HFA 90 mcg/actua tion aerosol inhaler INHALE 2 PUFFS BY MOUTH EVERY 6 HOURS NEEDED FOR SHORTNES S OF BREATH OR WHEEZING active Not Available Not Available No t Available ondansetr on 4 mg disintegr ating tablet 07/15 completed Not Available Not Available Not Available SF 5000 Plus 1.1 % dental cream APPLY WITH TOOTHBRU SH TWO TIMES DAILY DO NOT RINSE FOR 30 MINUTES AFTER APPLICAT ION active Not Available Not Available No t Available fluticaso ne propionat e 50 mcg/actua tion nasal spray,julio pension SPRAY 1 SPRAY INTO EACH NOSTRIL TWICE A DAY active Not Available Not Available No t Available clotrimaz ole 1 % topical cream APPLY TO THE AFFECTED AND SURROUND ING AREAS OF SKIN BY TOPICAL ROUTE 2 TIMES PER DAY IN THE MORNING AND EVENING 2017 active Not Available Not Available Not Avai lable dicyclomi ne 10 mg capsule active Not Available Not Available Not Available naproxen 500 mg tablet Take 1 tablet twice a day by oral route with meals. 2017 active Not Available Not Available Not Avai lable Lotemax 0.5 % eye drops,julio pension INSTILL 1 DROP IN EACH EYE 4 TIMES A DAY active Not Available Not Available No t Available verapamil ER 120 mg 24 hr capsule,e xtended release TAKE 1 CAPSULE DAILY BEFORE EATING. active Not Available Not Available No t Available oxycodone 5 mg tablet TAKE 1 TO 2 TABLETS BY MOUTH EVERY 4 TO 6 HOURS NEEDED FOR PAIN 09/12 completed Not Available Not Available Not Available neomycin- polymyxin -hydrocor t 3.5 mg-10,000 unit/mL-1 % ear drops,julio p INSTILL 4 DROPS INTO AFFECTED EAR(S) BY OTIC ROUTE 3 TIMES PER DAY 12/27 completed Not Available Not Available Not Available cyclobenz aprine 5 mg tablet TAKE 1 TABLET BY MOUTH THREE TIMES A DAY NEEDED FOR MUSCLE SPASM active Not Available Not Available No t Available Restasis 0.05 % eye drops in a dropperet te INSTILL 1 DROP INTO BOTH EYES TWICE A DAY active Not Available Not Available No t Available Senna Plus 8.6 mg-50 mg tablet TAKE 2 TABLETS BY MOUTH EVERY DAY NEEDED FOR 30 DAYS 2018 active Not Available Not Available Not Avai lable nitrofura ntoin monohydra te/macroc rystals 100 mg capsule TAKE 1 CAPSULE BY MOUTH TWICE A DAY 07/06 completed Not Available Not Available Not Available duloxetin e 30 mg capsule,d elayed release TAKE 1 CAPSULE BY MOUTH EVERY DAY active Not Available Not Available No t Available duloxetin e 60 mg capsule,d elayed release TAKE 1 CAPSULE BY MOUTH EVERY DAY active Not Available Not Available No t Available Flovent HFA 110 mcg/actua tion aerosol inhaler USE 2 INHALATI ONS TWICE A DAY active Not Available Not Available No t Available pregabali n 50 mg capsule TAKE 1 CAPSULE BY MOUTH TWICE A DAY active Not Available Not Available No t Available pregabali n 75 mg capsule TAKE 1 CAPSULE BY MOUTH THREE TIMES A DAY active Not Available Not Available No t Available albuterol sulfate 05/25 completed Not Available Not Available Not Available chlorophy ll copper complex 02/26 completed Not Available Not Available Not Available ondansetr on 05/25 completed Not Available Not Available Not Available fluocinol one acetonide oil 0.01 % ear drops INSTILL 5 DROPS TO AFFECTED EAR TWICE DAILY FOR NO MORE THAN 1-2 WEEKS active Not Available Not Available No t Available Alaway 0.025 % (0.035 %) eye drops INSTILL 1 DROP IN EACH EYE TWICE DAILY NEEDED. active Not Available Not Available No t Available Vitamin D3 50 mcg (2,000 unit) tablet TAKE 1 TABLET BY MOUTH EVERY DAY active Not Available Not Available No t Available Flovent Diskus 250 mcg/actua tion powder for inhalatio n USE 1 INHALATI ON BY MOUTH TWICE A DAY 02/26 completed Not Available Not Available Not Available butalbita l-acetami nophen-ca ffeine 50 mg-300 mg-40 mg capsule TAKE 1 CAPSULE BY MOUTH NEEDED FOR HEADACHE LIMIT ONE DAILY 07/06 completed Not Available Not Available Not Available Myrbetriq 50 mg tablet,ex tended release TAKE 1 TABLET BY MOUTH EVERY DAY active Not Available Not Available No t Available Narcan 4 mg/actuat ion nasal spray ADMINIST ER 1 SPRAY INTO ONE NOSTRIL. CALL 911. REPEAT AFTER 2-3 MIN IF NO OR MINIMAL RESPONSE active Not Available Not Available No t Available Xiidra 5 % eye drops in a dropperet te INSTILL 1 DROP INTO BOTH EYES TWICE A DAY NEEDED active Not Available Not Available No t Available Fluarix Quad (PF) 60 mcg (15 mcg x 4)/0.5 mL IM syringe TO BE ADMINIST ERED BY PHARMACI ST FOR IMMUNIZA TION 05/25 completed Not Available Not Available Not Available Aimovig Autoinjec tor 140 mg/2 Pack (70 mg/mL) subcutane ous injectio ns twice a month 05/31 completed Not Available Not Available Not Available Afluria Quad (PF) 60 mcg (15 mcg x 4)/0.5 mL IM syringe TO BE ADMINIST ERED BY PHARMACI ST FOR IMMUNIZA TION 10/02 completed Not Available Not Available Not Available [employer] Autoinjec tor 140 mg/mL subcutane ous auto-inje ctor injectio ns twice a month active Not Available Not Available No t Available Ubrelvy 100 mg tablet TAKE 1 TABLET BY MOUTH ONCE SINGLE DOSE. MAY REPEAT AT LEAST 2 HOURS AFTER FIRST DOSE IF NEEDED active Not Available Not Available No t Available Ubrelvy 50 mg tablet PLEASE SEE ATTACHED FOR DETAILED DIRECTIO NS active Not Available Not Available No t Available Vitals Date Recorded Body height Body mass index (BMI) Body weight Heart rate Oxygen saturation Oxygen saturation in Arterial blood by Pulse oximetry Respiratory rate Body temperature Systolic blood pressure Diastolic blood pressure Provider Name and Address Organization Details Last Updated DateTime 9 161.29 cm 33.3 kg/m2 44459.1 4 g 76 /min 98 % 98 % 16 /min 98.2 [degF] 120 mm[Hg] 78 mm[Hg] Kristal Perez [facility] [employer] [facility] 9 13:05:20 Date Recorded Body height Body mass index (BMI) Body weight Heart rate Oxygen saturation Oxygen saturation in Arterial blood by Pulse oximetry Respiratory rate Body temperature Systolic blood pressure Diastolic blood pressure Provider Name and Address Organization Details Last Updated DateTime 9 161.29 cm 34.2 kg/m2 92227.1 g 90 /min 96 % 96 % 18 /min 97.5 [degF] 138 mm[Hg] 80 mm[Hg] Belkis Lobo [facility] [employer] [facility] 9 10:01:12 Date Recorded Body height Body mass index (BMI) Body weight Heart rate Oxygen saturation Oxygen saturation in Arterial blood by Pulse oximetry Respiratory rate Body temperature Systolic blood pressure Diastolic blood pressure Provider Name and Address Organization Details Last Updated DateTime 9 161.29 cm 33.7 kg/m2 48442.3 3 g 101 /min 95 % 95 % 16 /min 98.2 [degF] 104 mm[Hg] 72 mm[Hg] Kristal Perez [facility] 9 13:11:49 Date Recorded Body height Body mass index (BMI) Body weight Body temperature Respiratory rate Heart rate Oxygen saturation Oxygen saturation in Arterial blood by Pulse oximetry Systolic blood pressure Diastolic blood pressure Provider Name and Address Organization Details Last Updated DateTime 9 161.29 cm 33.3 kg/m2 26619.1 4 g 98 [degF] 16 /min 102 /min 97 % 97 % 104 mm[Hg] 70 mm[Hg] Kristalchris Perez [facility] 9 11:15:28 Date Recorded Body height Body mass index (BMI) Body weight Respiratory rate Heart rate Oxygen saturation Oxygen saturation in Arterial blood by Pulse oximetry Body temperature Systolic blood pressure Diastolic blood pressure Provider Name and Address Organization Details Last Updated DateTime 9 161.29 cm 33.5 kg/m2 95682.7 4 g 16 /min 80 /min 98 % 98 % 98.1 [degF] 102 mm[Hg] 68 mm[Hg] Kristalchris Perez [facility] 9 13:22:45 Social History Question Answer Notes LastModified by Organizat ion Details LastModified Time Tobacco Smoking Status [facility] 13:53:58 What Is Your Level Of Alcohol Consumption? None [email or web address] Information not available 03/07/2018 What Is Your Level Of Caffeine Consumption? Occasional Information not available 05/25/2018 Which Illicit Or Recreational Drugs Have You Used? None [email or web address] Information not available 11/29/2018 What Is Your Occupation? Disability [employer], [employer] Information not available 05/25/2018 Are There Any Guns Present In Your Home? No Information not available 05/25/2018 Do You Have A Family History Of Mental Health Or Substance Abuse? Yes Information not available 05/25/2018 Language Vietnamese Information no t available 05/25/2018 Dietary Regular Food Traver- Not A Healthy Diet Information not available 03/07/2018 Marital Status Single Informatio n not available 05/25/2018 What Was The Date Of Your Most Recent Tobacco Screening? 03/14/2019 Information not available 05/29/2019 How Many Children Do You Have? 2 [email or web address] Information not available 03/07/2018 Seat Belts Used Routinely No Information not available 05/25/2018 Smoke Alarm In Home Yes Information not available 05/25/2018 General Stress Level Medium Information not available 05/25/2018 Do You Use Sunscreen Routinely? No Information not available 05/25/2018 Sex: Female Functional Status Question Answer Note LastModified by Organization D etails LastModified Time What is your exercise level? Moderate Information not available 05/25/2018 Mental Status None recorded. Family History Relationship Description Onset Age of this Age Resolved Age Notes LastModified by Organization Details LastModified Time Father Malignant tumor of lung father Not available 03/07/2018 13:53:51 Mother Diabetes mellitus Not available 2017 13:53:11 Medical History Condition Response Gout N Anxiety/Depression Y Gynecologic problems Y Hernia N Developmental or Behavioral Disorders Y Blood Pressure High or Low Y Breast Problem N Muscle, Joint, or Bone Problems Y Arthritis Y Cancer (of any kind) N Defects or Inherited Diseases N Stroke N Headache Y Dizziness or Fainting Y Anemia, Blood Clot, or Bleeding Disorder N Seizures or Convulsions N Asthma, COPD, Breathing or Lung Disorder Y Cardiac History, Heart Murmur, CT N Eye or Vision Problems Y Thyroid Problems N GI Problems Y Skin Problems Y Food or Environmental Allergies N Diabetes N Bladder,Kidney Problems or Recurrent UTI 's Y Bleeding Disorder N Prostate issues, ED or Sexual Problem N Insomnia Y Cholesterol High or Low N Chronic Pain Y Ear Nose & Throat (ENT) Problems N Neuropathy N Osteoporosis N Liver Disease or Hepatitis N Gynecological HistoryNo gynecological history recorded. Obstetrics History GPAL:G 0 P 0 0 0 0 Immunizations Vaccine Type Date Status Note Provider Nam e and Address Organization Details Recorded Time Influenza, split virus, quadrivalent, preservative 3 completed Becky Furrow null, [facility] 03/07/2018 13:49:20 Influenza, split virus, quadrivalent, preservative 6 completed Becky Furrow null, [facility] 03/07/2018 13:49:33 Influenza, split virus, quadrivalent, preservative 8 completed Becky Furrow null, [facility] 03/07/2018 13:50:15 Tdap 1 completed Becky Furrow null, [facility] 03/07/2018 13:50:29 influenza, unspecified formulation 8 completed Abigail Barbosa [address] [place], [address], [facility] 08/01/2018 15:28:36 Past Encounters Encounter ID Performer Location Encounter Start Date Encounter Closed Date Diagnosis/Indication Diagnosis SNOMED-CT Code Diagnosis ICD10 Code Diagnosis Note [id number] Carri Pérez MD [address] [address] 05/25/2018 11:15:45 05/25/2018 12:57:23 Asthma 315601907 J45.909 Lungs clear today. Incontinence [id number] R3 2 F/u supervisor rides as planned Osteoarthritis [id number] M19.90 f/u ortho as planned Fibromyalgia [id number] M 79.7 Con't osteopathi c manipulati ons and f/u pain clinic and acupunctur e Otalgia 76318056 H92.02 Bipolar disorder 8374214 4 F31.9 Tearful when talking about possibly losing dog. [id number] Carri Pérez MD [address] [address] 07/06/2018 16:05:22 07/06/2018 16:42:15 Pain in right knee [id number] 53203 M25.561 Acute swelling, though improving, which is reassuring . May be 2/2 fall.For L knee, f/u Aug 08. Incontinence 88247148 R3 2 Will write letter re: medical necessity for bathroom breaks on long car rides for medical appts, to avoid soiling. Candidiasis of skin 4988 3006 B37.2 Rec cream. [id number] Ashok Viveros MD [address] [place] [address] 09/12/2018 10:06:01 09/12/2018 11:31:38 Anxiety 44829015 F41.9 Patient reports taking PRN Ativan 0.5 mg--15 tablets lasts 6 months. She requests refill. I am agreeable to Rx refill request, MOLD ENGRAVER appropriat e, urine drug screen ordered, CS agreement signed--gregory cornejo provided copy. Directed to not take anxiety medication w/ pain medication . Patient is very aware of not 'mixing medication 's and I am comfortabl e with PRN Ativan and very clear w/ patient that 15 tablets should last 6 months, no further refills prior to. She verbalizes agreement of risks and understand ing of direction provided during today's OV. Multiple joint pain 3567 8005 M25.50 Patient requesting Flexeril Rx refill and takes PRN. I am agreeable to Rx request for muscle spasms, but cautioned patient that cannot provide continuous monthly refills on this medication . Patient is managed w/ PRN Oxycodone which is prescribed by her rail car painter/sandblaster . Will request consult notes for review prior to next scheduled appointmen t. Patient verbalizes agreement and understand ing of direction provided during today's OV. Snoring 01428776 R06.83 Suspect sleep apnea. Given short duration of today's OV and establishi ng care at our office, agreed to discuss at f/u appt. Will recommend sleep study referral. 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 32519784 M35.00 Patient reports Sjogren's with persistent dry eyes, dry skin, and xerostomia . Given short duration of today's OV and establishi ng care at our office, agreed to discuss at f/u appt. Will recommend rheumatolo gy referral for consult. Continue to use eye drops, suck on lozenges to promote salivation , increased water hydration, lip balm, skin moisturize r. Tinnitus 53867605 H93.12 Patient reports has been evaluated in past by ENT and is susi vargas. Will recommend she f/u w/ them directly if symptoms persist or worsen. Deviated nasal septum 12 0578874 J34.2 Patient reports is stable and is susi vargas w/ ENT. Will request consult notes. Dental caries 35403951 K 02.9 Patient is susi vargas w/ dentist and declines referral at this time. Asthma 703085091 J45.90 9 Patient reports has improved since ER discharge and is stable w/ nebulizer, Proair inhaler, Singulair. If persistent or change in symptoms, patient could benefit from LABA like Advair 50/250. Continued surveillan ce. Patient reports is susi vargas w/ pulmonary. F/U x 1 month. Pulmonary sarcoidosis 24 385558 D86.0 Patient reports is susi vargas w/ pulmonary. Will request and review consult notes prior to next appointmen t. Bipolar disorder 9597971 4 F31.9 Patient reports is susi hernandez/ psych team. Will request and review consult notes prior to next appointmen t. Chronic tremor 834037750 R25.1 Patient is susi vargas w/ neurology. Will request and review consult notes prior to next appointmen t. Lumbar radiculopathy 128 461899 M54.16 Patient is susi vargas w/ neurology. Will request and review consult notes prior to next appointmen t. Female str ess incontinence 45881956 N39.3 Patient is susi vargas w/ urology. Will request and review consult notes prior to next appointmen t. Irritable bowel syndrome 72708037 K58.9 Patient is susi vargas w/ GI. Will request and review consult notes prior to next appointmen t. Complex care needs 55639 1008 Z74.1 Social, family, medical, and surgical history reviewed w/ patient. Specialist referral note from neurology dated 08/03/2018 lists 67 active problems. Explained to patient that today given our 30 minute appointmen t time and new to me that would need to request consult notes collective ly for review to strategize care plan. Provided PT-1 for all specialtie s as requested. Patient has difficulty confirming what medication s she is actually taking when asked during today's OV medication reconcilia tion. Agreed that she would bring all her medication bottles for reconcilia tion at next scheduled appointmen t, bring her calendar with all appointmen t dates and times listed so we could review during OV. Will memo hammer update problems list and work with patient on integratin g all specialty care to a hub with primary care. She is agreeable to this plan. 25 minutes of today's 30 minute appointmen t spent on counseling patient about anxiety treatment and ensuring stable respirator y function/s tatus. Since ER discharge, she reports improved breathing and is stable. Recent ER labs reviewed-- CMP and CBC w/ diff stable. Continued surveillan ce. Abnormal vision 6082915 H54.7 Patient reports will f/u w/ ophthalmol ogy. [id number] Ashok Viveros MD [address] [address] 10/02/2018 10:21:40 10/02/2018 12:20:02 Anxiety 19794929 F41.9 10/02/2018 : Patient is requesting a medical note that verifies recommenda tion for emotional support animals for anxiety. Historical Context:Gregory cornejo reports taking PRN Ativan 0.5 mg--15 tablets lasts 6 months. She requests refill. I am agreeable to Rx refill request, MOLD ENGRAVER appropriat e, urine drug screen ordered, CS agreement signed--gregory cornejo provided copy. Directed to not take anxiety medication w/ pain medication . Patient is very aware of not 'mixing medication 's and I am comfortabl e with PRN Ativan and very clear w/ patient that 15 tablets should last 6 months, no further refills prior to. She verbalizes agreement of risks and understand ing of direction provided during today's OV. Candidiasis of mouth 797 31613 B37.0 Suspect thrush given mouth soreness and white tongue exudate. Encouraged to stop using the Neomycin Hydrocorti sone ear drops so frequently if not diagnosed w/ ear infection. Also am checking HgbA1 given symptoms and family history of Type II DM. Nystatin swish Rx provided and directed to f/u at clinic if no improvemen t or worsening symptoms. Patient verbalizes agreement and understand ing of direction provided during today's OV. Irritation of ear 432356 008 H93.8X9 Encouraged patient to d/c using old and formerly prescribed ear drops for ear infections . I suspect her ear tenderness may be from eczema given the pruritic quality she verbalizes . Agreed to Hydrocorti sone acetic acid drops and an ENT referral for consult given this senior care issue. Gastroesop hageal reflux disease without esophagitis 450510227 K21.9 Patient requesting refill Omeprazole 20 mg. She c/o reflux that is not well managed on Omeprazole and epigastric burning and tenderness . GI referral provided for consult as she is establishe alicia w/ Dr. Irving. Essential hypertension 54031274 I10 B/P is stable today--104 /76, orthostati c vitals today stable, and patient requests 6 month Rx refill. Agreeable to request. See dizziness treatment plan. Osteoarthritis 637043097 M19.90 Encouraged patient to continue w/ pain management clinic and take PRN Aleve to manage pain. Migraine with aura 65895 06 G43.109 Patient reports she takes PRN Butalbital -Acetamino phen-Caffe ine 50-300-40- -takes once capsule by mouth PRN with limit of 1 per day. Last filled 01/09/2018 by Hasmukh Herrera. Patient reports allergy to Topamax and Imitrex. Denies any recent episodes of migraine since last OV and stable. Neurology consult note dated 08/03/2018 referenced and patient taking Aimovig SQ for prevention of migraine. Increased frequency of urination 764773831 R35.0 Urology consult notes dated 08/07/2018 reviewed-- dx of mixed stress and urge urinary incontinen ce, atrophic vaginitis, and overactive bladder. Patient is currently on Myrbetriq 50 mg. Today U/A dipstick in office negative for UTI findings, however lysed blood positive. Sending urine for C&S and if symptoms persist recommende d f/u w/ urology to discuss given complex history of urogynecol ogy issues. Occult blo od detected in feces 13831113 R19.5 Agreed to check for occult blood and encouraged to f/u w/ GI as she is establishe d. Today she denies any episodes of hemorrhoid s, as she has (+) in past of hemorrhoid s. Screening mammography 24 715578 Z12.31 Patient requests annual screening. Family his tory of diabetes mellitus type 2 297672722 Z83.3 Given today she has mouth karen and family history of Type II DM, we agreed to check HgbA1c and pending results f/u as appropriat e. Easy bruising 249034313 R58 Check CBC w/ diff to r/o anemia. Upon inspection today, I don't see diffuse bruising of the skin and patient denies any domestic abuse at home. Continued surveillan ce. Dizziness 380106488 R42 Supine 108/80, sitting 120/82. Patient stable during today's OV. Orthostati c hypotensio n education provided and instructed to make postural changes slowly as I suspect this may be causation she is chris hess, given episodic and associated w/ postural changes. Other differenti al to consider: inner ear issue, vertigo, BPV. 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 PRN intermitte nt topical lidocaine may also be sued. Return to clinic to assess if no or limited response to regimen. Obstructiv e sleep apnea of adult 8975328378 103 G47.33 Reviewed consult notes from pulmonary zhagn hess f/u for repeat sleep study. Generating referral as gurjit vargas. Medication review done 016065246 Z76.89 Patient brought all medication bottles she takes at home. Reviewed w/ her in office and clarified purpose and reason for taking each one. Asthma 885058488 J45.90 9 10/02/2018 : Patient reports has been stable since last OV and is actively seeking different housing to limit exposure to environmen lobito irritants. Historical Context:Gregory cornejo reports has improved since ER discharge and is stable w/ nebulizer, Proair inhaler, Singulair. If persistent or change in symptoms, patient could benefit from LABA like Advair 50/250. Continued surveillan ce. Patient reports is susi vargas w/ pulmonary. F/U x 1 month. Complex care needs 81513 1008 Z74.1 10/02/2018 : 20 minutes of today's 30 minute appointmen t spent counseling on medication review/rec onciliatio n, reasons for taking each medication , labeling her Rx bottles. We agreed to once monthly appointmen ts elaina hammer work at managing consults, specialist s, and complex care. At f/u visit x 1 month, we agreed to f/u about updates w/ specialist s: rheumatolo gy referral needed?, ENT for deviated septum and tinnitus, chronic tremor and lumbar radiculopa thy, abnormal vision and opthalmolo gy f/u. PT-1 forms generated for pulmonary and eye as requested. Historical Context:So cial, family, medical, and surgical history reviewed w/ patient. Specialist referral note from neurology dated 08/03/2018 lists 67 active problems. Explained to patient that today given our 30 minute appointmen t time and new to me that would need to request consult notes collective ly for review to strategize care plan. Provided PT-1 for all specialtie s as requested. Patient has difficulty confirming what medication s she is actually taking when asked during today's OV medication reconcilia tion. Agreed that she would bring all her medication bottles for reconcilia tion at next scheduled appointmen t, bring her calendar with all appointmen t dates and times listed so we could review during OV. Christophe hammer update problems list and work with patient on integratin g all specialty care to a hub with primary care. She is agreeable to this plan. 25 minutes of today's 30 minute appointmen t spent on counseling patient about anxiety treatment and ensuring stable respirator y function/s tatus. Since ER discharge, she reports improved breathing and is stable. Recent ER labs reviewed-- CMP and CBC w/ diff stable. Continued surveillan ce. Chronic constipation 236 308228 K59.09 Encouraged daily water hydration, increased dietary fiber, Colace 2 in 1 recommende d. TSH to r/o thyroid causation. [id number] Ashok Viveros MD [address] [address] 10/29/2018 08:58:03 10/29/2018 10:09:59 Anxiety 38020119 F41.9 10/29/2018 : Patient reports is stable at this time. Historical Context:: Patient is requesting a medical note that verifies recommenda tion for emotional support animals for anxiety. Historical Context:Gregory cornejo reports taking PRN Ativan 0.5 mg--15 tablets lasts 6 months. She requests refill. I am agreeable to Rx refill request, MOLD ENGRAVER appropriat e, urine drug screen ordered, CS agreement signed--gregory cornejo provided copy. Directed to not take anxiety medication w/ pain medication . Patient is very aware of not 'mixing medication 's and I am comfortabl e with PRN Ativan and very clear w/ patient that 15 tablets should last 6 months, no further refills prior to. She verbalizes agreement of risks and understand ing of direction provided during today's OV. Candidiasis of mouth 797 54534 B37.0 10/29/2018 : HgbA1c results 5.2%. Mouth normal mucosa. Encouraged to use tongue scraper and no refill needed of Nystatin oral swish/swal low. Historical Context::S uspect thrush given mouth soreness and white tongue exudate. Encouraged to stop using the Neomycin Hydrocorti sone ear drops so frequently if not diagnosed w/ ear infection. Also am checking HgbA1 given symptoms and family history of Type II DM. Nystatin swish Rx provided and directed to f/u at clinic if no improvemen t or worsening symptoms. Patient verbalizes agreement and understand ing of direction provided during today's OV. Irritation of ear 742344 008 H93.8X9 10/29/2018 : Reports saw ENT and has f/u scheduled 11/15/18. Will request consult notes. PE of ear unremarkab le. Historical Context:: Encouraged patient to d/c using old and formerly prescribed ear drops for ear infections . I suspect her ear tenderness may be from eczema given the pruritic quality she verbalizes . Agreed to Hydrocorti sone acetic acid drops and an ENT referral for consult given this senior care issue. Gastroesop hageal reflux disease without esophagitis 398255869 K21.9 10/29/2018 : Encouraged to f/u w/ ENT as she has not scheduled appointmen t as directed at last OV. Historical Context:: Patient requesting refill Omeprazole 20 mg. She c/o reflux that is not well managed on Omeprazole and epigastric burning and tenderness . GI referral provided for consult as she is establishe d w/ Dr. Irving. Essential hypertension 33933136 I10 10/29/2018 : Patient stable, today OV B/P is 120/80. Historical Context:B/ P is stable today--104 /76, orthostati c vitals today stable, and patient requests 6 month Rx refill. Agreeable to request. See dizziness treatment plan. Osteoarthritis 579050100 M19.90 Encouraged patient to continue w/ pain management clinic and take PRN Aleve to manage pain. Migraine with aura 41901 06 G43.109 10/29/2018 : Patient reports is stable and the Aimovig injections are helping. Historical Context:Gregory cornejo reports she takes PRN Butalbital -Acetamino phen-Caffe ine 50-300-40- -takes once capsule by mouth PRN with limit of 1 per day. Last filled 01/09/2018 by Hasmukh Herrera. Patient reports allergy to Topamax and Imitrex. Denies any recent episodes of migraine since last OV and stable. Neurology consult note dated 08/03/2018 referenced and patient taking Aimovig SQ for prevention of migraine. Increased frequency of urination 294303742 R35.0 10/29/2018 : Recent U/A results (+) for bilirubin and calcium oxalate crystals. Directed to f/u w/ urology as she is establishe d w/ them for care. Historical Context:: Urology consult notes dated 08/07/2018 reviewed-- dx of mixed stress and urge urinary incontinen ce, atrophic vaginitis, and overactive bladder. Patient is currently on Myrbetriq 50 mg. Today U/A dipstick in office negative for UTI findings, however lysed blood positive. Sending urine for C&S and if symptoms persist recommende d f/u w/ urology to discuss given complex history of urogynecol ogy issues. Easy bruising 239949938 R58 10/29/2018 : CBC results normal. Historical Context: [place] CBC w/ diff to r/o anemia. Upon inspection today, I don't see diffuse bruising of the skin and patient denies any domestic abuse at home. Continued surveillan ce. Obstructiv e sleep apnea of adult 4609516998 103 G47.33 10/29/2018 : Patient reports sleep study completed. Will request consult notes/resu lts. Historical Context:Re viewed consult notes from pulmonary recommendi ng f/u for repeat sleep study. Generating referral as recommende d. Upper resp iratory infection 78017008 J06.9 Differenti als: viral vs bacterial vs allergic. Suspect viral as afebrile and no significan t findings on physical exam. Encouraged to take OTC cough syrup, Nyquil, throat lozenges, f/u if worsening symptoms. [id number] ROSALEE Wood[address] [place] [address] 11/29/2018 13:06:49 11/29/2018 14:24:51 Gastroesophageal reflux disease 285412980 K21.9 Patient requesting Rx refill of Omeprazole . Reports saw Irving and recommende d to take Metamucil. She is requesting a fiber pill as cannot afford OTC Metamucil. I am agreeable to her request. Anxiety 09056790 F41.9 11/29/2018 : Agreed to trial of Hydroxyzin e--take 1-2 tablets tid PRN. Explained that refill for benzodiaze pine too early given we agreed last Rx to last 6 months. This is a good opportunit y to transition to a different Rx for anxiety management given muscle relaxant and narcotic pain Rx received from other providers. Patient is agreeable to this plan. I suspect a good Rx recommenda tion to discuss w/ mental health team may be Effexor. Historical Context:: Patient reports is stable at this time. 10/02/2018 : Patient is requesting a medical note that verifies recommenda tion for emotional support animals for anxiety. Historical Context:Gregory cornejo reports taking PRN Ativan 0.5 mg--15 tablets lasts 6 months. She requests refill. I am agreeable to Rx refill request, MOLD ENGRAVER appropriat e, urine drug screen ordered, CS agreement signed--gregory cornejo provided copy. Directed to not take anxiety medication w/ pain medication . Patient is very aware of not 'mixing medication 's and I am comfortabl e with PRN Ativan and very clear w/ patient that 15 tablets should last 6 months, no further refills prior to. She verbalizes agreement of risks and understand ing of direction provided during today's OV. Candidiasis of mouth 797 38720 B37.0 11/29/2018 : Has fully resolved since last OV. Historical Context:: HgbA1c results 5.2%. Mouth normal mucosa. Encouraged to use tongue scraper and no refill needed of Nystatin oral swish/swal low. 10/02/2018 :Suspect thrush given mouth soreness and white tongue exudate. Encouraged to stop using the Neomycin Hydrocorti sone ear drops so frequently if not diagnosed w/ ear infection. Also am checking HgbA1 given symptoms and family history of Type II DM. Nystatin swish Rx provided and directed to f/u at clinic if no improvemen t or worsening symptoms. Patient verbalizes agreement and understand ing of direction provided during today's OV. Irritation of ear 177294 008 H93.8X9 11/29/2018 : Patient reports saw ENT again. Prescribed ear drops. Will request consult notes. Historical Context:: Reports saw ENT and has f/u scheduled 11/15/18. Will request consult notes. PE of ear unremarkab le. 10/02/2018 : Encouraged patient to d/c using old and formerly prescribed ear drops for ear infections . I suspect her ear tenderness may be from eczema given the pruritic quality she verbalizes . Agreed to Hydrocorti sone acetic acid drops and an ENT referral for consult given this intermediate accountant issue. Essential hypertension 52579020 I10 Stable today's OV--112/76 . Continue w/ Verapamil ER 120 mg. Migraine with aura 49201 06 G43.109 11/29/2018 : Patient reports is well managed at this time and no headaches. Historical Context:: Patient reports is stable and the Aimovig injections are helping. Historical Context:Gregory cornejo reports she takes PRN Butalbital -Acetamino phen-Caffe ine 50-300-40- -takes once capsule by mouth PRN with limit of 1 per day. Last filled 01/09/2018 by Hasmukh Herrera. Patient reports allergy to Topamax and Imitrex. Denies any recent episodes of migraine since last OV and stable. Neurology consult note dated 08/03/2018 referenced and patient taking Aimovig SQ for prevention of migraine. Increased frequency of urination 024593179 R35.0 11/29/2018 : Patient reports saw urology and they ordered U/S which showed no stones. Will request urology consult notes. Historical Context:: Recent U/A results (+) for bilirubin and calcium oxalate crystals. Directed to f/u w/ urology as she is establishe d w/ them for care. 10/02/2018 : Urology consult notes dated 08/07/2018 reviewed-- dx of mixed stress and urge urinary incontinen ce, atrophic vaginitis, and overactive bladder. Patient is currently on Myrbetriq 50 mg. Today U/A dipstick in office negative for UTI findings, however lysed blood positive. Sending urine for C&S and if symptoms persist recommende d f/u w/ urology to discuss given complex history of urogynecol ogy issues. Obstructiv e sleep apnea of adult 5989953936 103 G47.33 11/29/2018 : Patient reports CPAP recommende d and in process of obtaining. Historical Context:: Patient reports sleep study completed. Will request consult notes/resu lts. Historical Context:Re viewed consult notes from pulmonary recommendi ng f/u for repeat sleep study. Generating referral as recommende d. Upper resp iratory infection 29136899 J06.9 11/29/2018 : Resolved since last OV. Peak flows today: 300, 250, 310. Encouraged to use Vaseline in nares, humidifier , increased water hydration. Historical Context:: Differenti als: viral vs bacterial vs allergic. Suspect viral as afebrile and no significan t findings on physical exam. Encouraged to take OTC cough syrup, Nyquil, throat lozenges, f/u if worsening symptoms. [id number] ROSALEE Wood-ISAIAS [address] [address] 12/04/2018 10:20:12 12/04/2018 11:08:40 Upper respiratory infection 44283619 J06.9 12/04/2018 : Chest x-ray ordered, initiate Doxycyclin e (directed to take w/ food and probiotics ). Dayquil gel tabs, Nyquil, lozenges, OTC Robitussin , inhalers. Rapid strep (-) in office. Peak flows today: 210, 190, 250. Seek ER if worsening or no improvemen t in symptoms. Historical Context:: Resolved since last OV. Peak flows today: 300, 250, 310. Encouraged to use Vaseline in nares, humidifier , increased water hydration. Historical Context:: Differenti als: viral vs bacterial vs allergic. Suspect viral as afebrile and no significan t findings on physical exam. Encouraged to take OTC cough syrup, Nyquil, throat lozenges, f/u if worsening symptoms. [id number] Sally Hutchins AGPCNP-BC [facility] [place] [address] 12/27/2018 12:34:01 12/27/2018 14:09:34 Increased frequency of urination 884048147 R35.0 12/27/2018 : Patient requesting refill of Myrbetriq. Given wants to r/o UTI, U/A in office ordered and (-) significan t findings. Sent urine for analysis. Historical Context:: Patient reports saw urology and they ordered U/S which showed no stones. Will request urology consult notes. 10/29/2018 : Recent U/A results (+) for bilirubin and calcium oxalate crystals. Directed to f/u w/ urology as she is establishe d w/ them for care. 10/02/2018 : Urology consult notes dated 08/07/2018 reviewed-- dx of mixed stress and urge urinary incontinen ce, atrophic vaginitis, and overactive bladder. Patient is currently on Myrbetriq 50 mg. Today U/A dipstick in office negative for UTI findings, however lysed blood positive. Sending urine for C&S and if symptoms persist recommende d f/u w/ urology to discuss given complex history of urogynecol ogy issues. Fibromyalgia [id number] M 79.7 Reviewed consult note from physical medicine and rehabilita tion dated 11/13/2018 . OMPT to 7 regions, directed to continue tenets of anti-infla mmatory diet, increased water intake, f/u w/ orth, continue w/ pain management clinic (Percocet, NSAID, injections , Botox, water therapy, Salbador Chi), and f/u x 4 weeks. Given she is seen by multiple specialist s and has current and past h/o narcotics, benzo, and muscle relaxant use, today we discussed having Narcan on hand. While she verbalizes an awareness to avoid taking these medication s together or in combinatio n, we discussed that most overdoses are accidental and it's the combinatio n that is lethal. Given she requests using Cyclobenza rios and Lorazepam, we agreed that she would only use PRN Lorazepam and to d/c Cyclobenza rios use for muscle spasms. Narcan Rx provided. Gastroesop hageal reflux disease without esophagitis [id number] K21.9 12/27/2018 : Reports is stable. Historical Context:: Encouraged to f/u w/ ENT as she has not scheduled appointmen t as directed at last OV. 10/02/2018 : Patient requesting refill Omeprazole 20 mg. She c/o reflux that is not well managed on Omeprazole and epigastric burning and tenderness . GI referral provided for consult as she is susi vargas w/ Dr. Irving. Anxiety [id number] F41.9 12/27/2018 : PHQ-9 today 05/02. Patient has been using Hydroxyzin e PRN w/ good effect. Historical Context:: Agreed to trial of Hydroxyzin e--take 1-2 tablets tid PRN. Explained that refill for benzodiaze pine too early given we agreed last Rx to last 6 months. This is a good opportunit y to transition to a different Rx for anxiety management given muscle relaxant and narcotic pain Rx received from other providers. Patient is agreeable to this plan. I suspect a good Rx recommenda tion to discuss w/ mental health team may be Effexor. 10/29/2018 : Patient reports is stable at this time. 10/02/2018 : Patient is requesting a medical note that verifies recommenda tion for emotional support animals for anxiety. Historical Context:Gregory cornejo reports taking PRN Ativan 0.5 mg--15 tablets lasts 6 months. She requests refill. I am agreeable to Rx refill request, MOLD ENGRAVER appropriat e, urine drug screen ordered, CS agreement signed--gregory cornejo provided copy. Directed to not take anxiety medication w/ pain medication . Patient is very aware of not 'mixing medication 's and I am comfortabl e with PRN Ativan and very clear w/ patient that 15 tablets should last 6 months, no further refills prior to. She verbalizes agreement of risks and understand ing of direction provided during today's OV. Essential hypertension [id number] I10 Stable today's OV--130/86 . Continue w/ Verapamil ER 120 mg. Migraine with aura 07588 06 G43.109 12/27/2018 : patient reports Amovig injections are working really well and denies headaches since last OV. Historical Context:: Patient reports is well managed at this time and no headaches. 10/29/2018 : Patient reports is stable and the Aimovig injections are helping. Historical Context:Gregory cornejo reports she takes PRN Butalbital -Acetamino phen-Caffe ine 50-300-40- -takes once capsule by mouth PRN with limit of 1 per day. Last filled 01/09/2018 by Hasmukh Herrera. Patient reports allergy to Topamax and Imitrex. Denies any recent episodes of migraine since last OV and stable. Neurology consult note dated 08/03/2018 referenced and patient taking Aimovig SQ for prevention of migraine. Obstructiv e sleep apnea syndrome [id number] G47.33 Reports is still waiting for CPAP and scheduled to apple picker machine next week. Chronic low back pain 27 3417534 M54.5 Requesting PT-1 form for transporta tion to new chiropract or. Pain of le ft ankle joint [id number] 3902096 M25.572 Orthopedic s recommends surgery. Patient declining until Summer 2018. Until then, Celebrex, topical compounded analgesic, brace. F/U ortho x 6 weeks. Continue w/ pain management clinic. Pain in left knee 319425 1950 16722 M25.562 Celebrex, topical compounded analgesic, brace. F/U ortho x 6 weeks. Continue w/ pain management clinic. Upper resp iratory infection 99620800 J06.9 12/27/2018 : Peak flows today: 270, 310, 270. Patient reports full resolve of URI symptoms since last OV. Historical Context:: Chest x-ray ordered, initiate Doxycyclin e (directed to take w/ food and probiotics ). Dayquil gel tabs, Nyquil, lozenges, OTC Robitussin , inhalers. Rapid strep (-) in office. Peak flows today: 210, 190, 250. Seek ER if worsening or no improvemen t in symptoms. 11/29/2018 : Resolved since last OV. Peak flows today: 300, 250, 310. Encouraged to use Vaseline in nares, humidifier , increased water hydration. Historical Context:: Differenti als: viral vs bacterial vs allergic. Suspect viral as afebrile and no significan t findings on physical exam. Encouraged to take OTC cough syrup, Nyquil, throat lozenges, f/u if worsening symptoms. [id number] ROSALEE Wood-[address] [place] [address] 01/31/2019 12:49:43 01/31/2019 13:54:59 Upper respiratory infection 85965362 J06.9 01/31/2019 : Patient reports productive cough w/ yellow-whi te phlegm and sinus pressure headache x 3 weeks. Denies any other URI symptoms. Peak flows today 170, 180, 210 and O2 98% on room air. Agreed to check x-ray to determine if antibiotic s indicated. Josh in office provided and instructed patient to continue w/ neb treatments at home. I suspect her symptoms are from the sleep apnea machine and mask not fitting well and allergies. She also has pulmonary sarcoidosi s, allergies, bacterial infection, bronchitis , and asthma so also further differenti als to be considered . Historical Context:: Peak flows today: 270, 310, 270. Patient reports full resolve of URI symptoms since last OV. 12/04/2018 : Chest x-ray ordered, initiate Doxycyclin e (directed to take w/ food and probiotics ). Dayquil gel tabs, Nyquil, lozenges, OTC Robitussin , inhalers. Rapid strep (-) in office. Peak flows today: 210, 190, 250. Seek ER if worsening or no improvemen t in symptoms. 11/29/2018 : Resolved since last OV. Peak flows today: 300, 250, 310. Encouraged to use Vaseline in nares, humidifier , increased water hydration. Historical Context:: Differenti als: viral vs bacterial vs allergic. Suspect viral as afebrile and no significan t findings on physical exam. Encouraged to take OTC cough syrup, Nyquil, throat lozenges, f/u if worsening symptoms. Fibromyalgia [id number] M 79.7 01/31/2019 : Patient reports stable and continues w/ chiropract ic, PT, wather therapy and pain management team and modalities . Historical Context:Re viewed consult note from physical medicine and rehabilita tion dated 11/13/2018 . OMPT to 7 regions, directed to continue tenets of anti-infla mmatory diet, increased water intake, f/u w/ orth, continue w/ pain management clinic (Percocet, NSAID, injections , Botox, water therapy, Salbador Chi), and f/u x 4 weeks. Given she is seen by multiple specialist s and has current and past h/o narcotics, benzo, and muscle relaxant use, today we discussed having Narcan on hand. While she verbalizes an awareness to avoid taking these medication s together or in combinatio n, we discussed that most overdoses are accidental and it's the combinatio n that is lethal. Given she requests using Cyclobenza rios and Lorazepam, we agreed that she would only use PRN Lorazepam and to d/c Cyclobenza rios use for muscle spasms. Narcan Rx provided. Gastroesop hageal reflux disease without esophagitis 113499936 K21.9 01/31/2019 : Patient reports improved on Omeprazole . Rx provided. Historical Context:: Reports is stable. 10/29/2018 : Encouraged to f/u w/ ENT as she has not scheduled appointmen t as directed at last OV. 10/02/2018 : Patient requesting refill Omeprazole 20 mg. She c/o reflux that is not well managed on Omeprazole and epigastric burning and tenderness . GI referral provided for consult as she is establishcipriano vargas w/ Dr. Irving. Anxiety 41378188 F41.9 01/31/2019 : PHQ-9 score today 727 and JUAN-7 score today 5. Stable. Historical Context:: PHQ-9 today 05/02. Patient has been using Hydroxyzin e PRN w/ good effect. 11/29/2018 : Agreed to trial of Hydroxyzin e--take 1-2 tablets tid PRN. Explained that refill for benzodiaze pine too early given we agreed last Rx to last 6 months. This is a good opportunit y to transition to a different Rx for anxiety management given muscle relaxant and narcotic pain Rx received from other providers. Patient is agreeable to this plan. I suspect a good Rx recommenda tion to discuss w/ mental health team may be Effexor. 10/29/2018 : Patient reports is stable at this time. 10/02/2018 : Patient is requesting a medical note that verifies recommenda tion for emotional support animals for anxiety. Historical Context:Gregory cornejo reports taking PRN Ativan 0.5 mg--15 tablets lasts 6 months. She requests refill. I am agreeable to Rx refill request, MOLD ENGRAVER appropriat e, urine drug screen ordered, CS agreement signed--gregory cornejo provided copy. Directed to not take anxiety medication w/ pain medication . Patient is very aware of not 'mixing medication 's and I am comfortabl e with PRN Ativan and very clear w/ patient that 15 tablets should last 6 months, no further refills prior to. She verbalizes agreement of risks and understand ing of direction provided during today's OV. Essential hypertension [id number] I10 Stable today's OV--120/78 . Continue w/ Verapamil ER 120 mg. Migraine with aura 26821 06 G43.109 01/31/2019 : Patient reports Amovig injection scheduled next week. Historical Context:: patient reports Amovig injections are working really well and denies headaches since last OV. 11/29/2018 : Patient reports is well managed at this time and no headaches. 10/29/2018 : Patient reports is stable and the Aimovig injections are helping. Historical Context:Gregory cornejo reports she takes PRN Butalbital -Acetamino phen-Caffe ine 50-300-40- -takes once capsule by mouth PRN with limit of 1 per day. Last filled 01/09/2018 by Hasmukh Herrera. Patient reports allergy to Topamax and Imitrex. Denies any recent episodes of migraine since last OV and stable. Neurology consult note dated 08/03/2018 referenced and patient taking Aimovig SQ for prevention of migraine. Obstructiv e sleep apnea syndrome 12259074 G47.33 01/31/2019 : Patient reports using CPAP but not sure that mask is fitting well and has f/u w/ pulmonary on 02/15. Historical Context: Reports is still waiting for CPAP and scheduled to apple picker machine next week. Chronic low back pain 27 0736578 M54.5 Reports has been working w/ pain management , water therapy, chiropract ic, PT. Pain of le ft ankle joint [id number] 5443720 M25.572 01/31/2019 : Stable and unchanged in treatment plan. Historical Context:Or thopedics recommends surgery. Patient declining until Summer 2018. Until then, Celebrex, topical compounded analgesic, brace. F/U ortho x 6 weeks. Continue w/ pain management clinic. Pain in left knee 555737 8934 47302 M25.562 01/31/2019 : Stable and unchanged in treatment plan. Historical Context:Ce lebrex, topical compounded analgesic, brace. F/U ortho x 6 weeks. Continue w/ pain management clinic. [id number] Shivani Hoffmann MD [address] [address] 02/26/2019 09:49:51 02/26/2019 10:55:52 Increased frequency of urination [id number] R35.0 Not a UTI. No treatment indicated. Abdominal pain 29546602 R10.9 Patient with vague/gene ralized abdominal pain, reportedly with diarrhea. I am a bit concerned about the descriptio n of burning however, and will give her a constipati ng antacid (aluminum hydroxide) , and see if that calms down the gurgling and relieves the burning as well. [id number] SHEILA Wood [address] [address] 03/14/2019 13:01:05 03/14/2019 14:04:39 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 82179610 M35.00 03/14/2019 : Patient requests referral to rheumatpennie mccarty. Historical Context:Gregory cornejo reports Sjogren's with persistent dry eyes, dry skin, and xerostomia . Given short duration of today's OV and establishi ng care at our office, agreed to discuss at f/u appt. Will recommend rheumatolo gy referral for consult. Continue to use eye drops, suck on lozenges to promote salivation , increased water hydration, lip balm, skin moisturize r. Essential hypertension 93224790 I10 Stable today's OV--104/72 . Continue w/ Verapamil ER 120 mg. She requests Rx refill today. Upper resp iratory infection 66611316 J06.9 03/14/2019 : Peak flows today: 200, 220, 230. Reports URI fully resolved since last OV. Historical Context:: Patient reports productive cough w/ yellow-whi te phlegm and sinus pressure headache x 3 weeks. Denies any other URI symptoms. Peak flows today 170, 180, 210 and O2 98% on room air. Agreed to check x-ray to determine if antibiotic s indicated. Josh in office provided and instructed patient to continue w/ neb treatments at home. I suspect her symptoms are from the sleep apnea machine and mask not fitting well and allergies. She also has pulmonary sarcoidosi s, allergies, bacterial infection, bronchitis , and asthma so also further differenti als to be considered . 12/27/2018 : Peak flows today: 270, 310, 270. Patient reports full resolve of URI symptoms since last OV. 12/04/2018 : Chest x-ray ordered, initiate Doxycyclin e (directed to take w/ food and probiotics ). Dayquil gel tabs, Nyquil, lozenges, OTC Robitussin , inhalers. Rapid strep (-) in office. Peak flows today: 210, 190, 250. Seek ER if worsening or no improvemen t in symptoms. 11/29/2018 : Resolved since last OV. Peak flows today: 300, 250, 310. Encouraged to use Vaseline in nares, humidifier , increased water hydration. Historical Context:: Differenti als: viral vs bacterial vs allergic. Suspect viral as afebrile and no significan t findings on physical exam. Encouraged to take OTC cough syrup, Nyquil, throat lozenges, f/u if worsening symptoms. Fibromyalgia 267678629 M 79.7 03/14/2019 : Patient reports stable at this time. Requesting referral to rheumatolo lul to establish care to discuss joint pain and discuss Sjogren's as recommende d per her dentist. Historical Context:: Patient reports stable and continues w/ chiropract ic, PT, wather therapy and pain management team and modalities . Historical Context:Re viewed consult note from physical medicine and rehabilita tion dated 11/13/2018 . OMPT to 7 regions, directed to continue tenets of anti-infla mmatory diet, increased water intake, f/u w/ orth, continue w/ pain management clinic (Percocet, NSAID, injections , Botox, water therapy, Salbador Chi), and f/u x 4 weeks. Given she is seen by multiple specialist s and has current and past h/o narcotics, benzo, and muscle relaxant use, today we discussed having Narcan on hand. While she verbalizes an awareness to avoid taking these medication s together or in combinatio n, we discussed that most overdoses are accidental and it's the combinatio n that is lethal. Given she requests using Cyclobenza rios and Lorazepam, we agreed that she would only use PRN Lorazepam and to d/c Cyclobenza rios use for muscle spasms. Narcan Rx provided. Gastroesop hageal reflux disease without esophagitis 043084125 K21.9 03/14/2019 : Patient reports stable at this time. Historical Context:: Patient reports improved on Omeprazole . Rx provided. 12/27/2018 : Reports is stable. 10/29/2018 : Encouraged to f/u w/ ENT as she has not scheduled appointmen t as directed at last OV. 10/02/2018 : Patient requesting refill Omeprazole 20 mg. She c/o reflux that is not well managed on Omeprazole and epigastric burning and tenderness . GI referral provided for consult as she is susi hernandez/ Dr. Irving. Anxiety 61501015 F41.9 03/14/2019 : PHQ-9 score today 7/27 and JUAN-7 score today 03/26. She is susi hernandez/ Dr. Rowland who also oversees her bipolar. Currently on Duloxetine 30 mg qd. Historical Context:: PHQ-9 score today 7/27 and JUAN-7 score today 5. Stable. 12/27/2018 : PHQ-9 today 6. Patient has been using Hydroxyzin e PRN w/ good effect. 11/29/2018 : Agreed to trial of Hydroxyzin e--take 1-2 tablets tid PRN. Explained that refill for benzodiaze pine too early given we agreed last Rx to last 6 months. This is a good opportunit y to transition to a different Rx for anxiety management given muscle relaxant and narcotic pain Rx received from other providers. Patient is agreeable to this plan. I suspect a good Rx recommenda tion to discuss w/ mental health team may be Effexor. 10/29/2018 : Patient reports is stable at this time. 10/02/2018 : Patient is requesting a medical note that verifies recommenda tion for emotional support animals for anxiety. Historical Context:Gregory cornejo reports taking PRN Ativan 0.5 mg--15 tablets lasts 6 months. She requests refill. I am agreeable to Rx refill request, MOLD ENGRAVER appropriat e, urine drug screen ordered, CS agreement signed--gregory cornejo provided copy. Directed to not take anxiety medication w/ pain medication . Patient is very aware of not 'mixing medication 's and I am comfortabl e with PRN Ativan and very clear w/ patient that 15 tablets should last 6 months, no further refills prior to. She verbalizes agreement of risks and understand ing of direction provided during today's OV. Migraine with aura 88298 06 G43.109 03/14/2019 : Patient reports received last Aimovig injection last week w/ next appt scheduled for injection this month. She reports has appt scheduled w/ neurology tomorrow for chronic neck pain and migraine management . Historical Context:: Patient reports Amovig injection scheduled next week. 12/27/2018 : patient reports Amovig injections are working really well and denies headaches since last OV. 11/29/2018 : Patient reports is well managed at this time and no headaches. 10/29/2018 : Patient reports is stable and the Aimovig injections are helping. Historical Context:Gregory cornejo reports she takes PRN Butalbital -Acetamino phen-Caffe ine 50-300-40- -takes once capsule by mouth PRN with limit of 1 per day. Last filled 01/09/2018 by Hasmukh Herrera. Patient reports allergy to Topamax and Imitrex. Denies any recent episodes of migraine since last OV and stable. Neurology consult note dated 08/03/2018 referenced and patient taking Aimovig SQ for prevention of migraine. Obstructiv e sleep apnea syndrome 04622339 G47.33 03/14/2019 : Patient reports has not been using CPAP. Has pulmonolog y appt scheduled 04/16/2019 . Historical Context:: Patient reports using CPAP but not sure that mask is fitting well and has f/u w/ pulmonary on 02/15. Historical Context: Reports is still waiting for CPAP and scheduled to apple picker machine next week. Chronic low back pain 27 6780121 M54.5 Reports has been working w/ pain management , water therapy, chiropract ic, PT. Reports has orthopedic s appt scheduled 03/28/2019 . Pain of le ft ankle joint 1115401136 9787029 M25.572 03/14/2019 : Patient reports continues to wear ankle brace for support. Has appt scheduled April 2019 w/ ortho, until then continues w/ Celebrex, topical compound analgesic, brace, pain management clinic. Historical Context:: Stable and unchanged in treatment plan. Historical Context:Or thopedics recommends surgery. Patient declining until Summer 2018. Until then, Celebrex, topical compounded analgesic, brace. F/U ortho x 6 weeks. Continue w/ pain management clinic. Pain in left knee 311907 2506 66744 M25.562 03/14/2019 : Patient reports has surgical consult scheduled 03/27/2019 w/ Dr. Khalil. Continue w/ brace, compound analgesic, Celebrex as directed. Historical Context:: Stable and unchanged in treatment plan. Historical Context:Ce lebrex, topical compounded analgesic, brace. F/U ortho x 6 weeks. Continue w/ pain management clinic. Pain in right knee 46493 87825 49182 M25.561 Patient requesting referral to consult w/ Dr. Khalil about right knee pain. Referral for continuity of care provided. Bipolar disorder [id number] 4 F31.9 Patient reports is establishe d w/ psych team--Dr. Rowland . See anxiety treatment plan. Care plan goal agreed 72 [id number] Z76.89 Recent telephone conference w/ PCP, Dr. Figueredo and Dr. Rowland . Neurology unable to attend conference call. Agreed that any muscle relaxant, pain management , benzo use needs to come from specialist s--as primary care not able to provide muscle relaxant, narcotics, benzo use intermediate accountant. Directed patient to f/u w/ pain management and neurology for Rx refills to ensure continuity of care and for patient safety. [id number] ROSALEE Wood-BC P [address] [address] 05/31/2019 11:05:48 05/31/2019 11:58:43 Fall W19.XXXD ER consult note dated 05/22/2019 in which she was evaluated for fall. Patient reports improvemen t since fall and requests letter for return to water therapy. Letter provided. [id number] Shivani Hoffmann MD [address] [place] [address] 07/15/2019 13:08:01 07/15/2019 14:13:01 Chronic pain syndrome 705430721 G89.4 Patient in chronic pain and this will replace fibromyal juan on her problem list. Unable to get useful informatio n (except her generalize d tenderness ) from any non-object iram section of the exam. She asked for pain medicine in a by the way manner. Not prescribed , as it has been decided that she will get no benzos or opiates. Health Concerns Section Related Observation LastModified by Organization Detai ls LastModified Time None Recorded Concern Status LastModified by Organization Details LastModified Time None Recorded Advance Directives Directive None Recorded Payers Encounter Date Sequence Insurance Name Policy Number Policy Hammond Covered Member ID Hammond Member ID Guarantor Name 01/31/2019 1 [place] [employer] Padmini Garcia Otilio [id number] Padmini Spencer 01/31/2019 2 [place] [facility] Padmini aGrcia Otilio [id number] Padmini Spencer 02/26/2019 1 [place] [employer] Padmini Garcia Otilio [id number] Padmini Spencer 02/26/2019 2 [place] [facility] Padmini Garcia Otilio [id number] Padmini Spencer 03/14/2019 1 [place] [employer] Padmini Garcia Otilio [id number] Padmini Spencer 03/14/2019 2 [place] [facility] Padmini Garcia Otilio [id number] Padmini Spencer 05/31/2019 1 [place] [employer] Padmini Garcia Otilio [id number] Padmini Spencer 05/31/2019 2 [place] [facility] Padmini Garcia Otilio [id number] Padmini Spencer 07/15/2019 1 [place] [employer] Padmini Yañez [id number] Padmini Spencer 07/15/2019 2 [place] [facility] Padmini Yañez [id number] Padmini Spencer Notes Date Note Type Note Provider Name a nd Address Organization Details Recorded Time 01/31/2019 text/html 58 yo female presents for c/o URI symptoms x 3 weeks. She reports productive cough w/ clear-yellow sputum, worse at night, and sinus pressure. She denies SOB, fever, chills, nausea, vomiting, abdominal pain, diarrhea, sore throat, ear pain, ear drainage, rash. H/O pulmonary sarcoidosis, sleep apnea, and asthma. She denies using nebulizer at home. Reports using sleep apnea machine, but doesn't feel like the face mask fits properly. She has f/u w/ pulmonary on 02/15. Today she reports her increased frequency of urination is normalized and stable, her GERD has improved w/ Omeprazole. She is due for Amovig injections next week, which she reports are managing her migraine headaches well. ROSALEE Wood-ISAIAS [address] [place] [address], [phone], [employer] 01/31/2019 13:59:06 02/26/2019 text/html Patient began prednisone about three weeks ago, and thinks her new symptoms are all related to it. She mentions burning in her stomach (then indicates whole abdomen as her stomach ), excessive sweating, some mood/mental changes (sometimes feels out of it ), some skin problems, some dysuria, and diarrhea. She says stools are light colored--no black color seen Shivani Hoffmann MD [address] [place] [address], [phone], [employer] 02/26/2019 10:52:28 03/14/2019 text/html 59 yo female presents for surveillance of left ankle and left knee treatment plan. She reports continues to wear braces, topical analgesic, Celebrex. Has appt scheduled w/ Dr. Khalil for 03/27 to discuss surgical consult plan for left knee pain. Today she requests consult referral for right knee pain. Today she reports has pulmonology appt scheduled 04/16 and has not been wearing CPAP. URI symptoms fully resolved since last OV dated 02/26/2019. She reports has appt scheduled tomorrow w/ Dr. Rowland who manages her bipolar and anxiety. Today she continues to c/o joint pain. Was recently evaluated by dentist who recommended she seek referral to rheumatology for Sjogren's and today requests referral. SHEILA Wood [address] [place] [address], [phone], [employer] 03/14/2019 15:04:42 05/31/2019 text/html 59 yo female presents for problem focused visit for request of letter stating that she can return to water therapy. Was evaluated in ER on 05/15/2019 for fall in which she sustained LOC.Today she denies any vision changes, speech changes, or symptoms of post residual concussion symptoms. She verbalizes stable and feels ready to return to water therapy. SHEILA Wood [address] [place] [address], [phone], [employer] 05/31/2019 11:43:15 07/15/2019 text/html Multiple complaints. Mostly about her knees, initially, but then everything was just so painful . Shivani Hoffmann MD [address] [place] [address], [phone], [facility] [employer] 07/15/2019 14:32:39 OBGyn Episode No OBEpisode recorded.
--- OUTSIDE RECORDS SUMMARY | 2025-01-14 17:28 | XMS_ITS | Continuity of Care Document ---
Author Organization [facility] y Address [address] [place] [address] [address], [address] [place] [address]- Care Team Providers Care Home Energy Consultant Name Role Phone Ricki Rooney DO Primary Care Physician Encounter [facility] Date(s): 11/14/24 - 12/14/24 [facility] [address] [place] [address] Drive [address] [place], [place] [address] Encounter Type: Triage Allergies, Adverse Reactions, Alerts Substance Criticality Severity Reaction Reaction Severity Status ciprofloxacin unknown Active penicillins lethargic Active Ritalin body aches Active Ancef body shut down body aches Active Topamax unknown Active Relafen throat Active Strattera unknown Active codeine gi upset Active aspirin GI upset Active Imitrex throat swells Active Medications acetaminophen 325 mg oral tablet 650 mg, By Mouth, Every 6 hours, May take OTC not to exceed 3000 mg/day, Refills 0, Maintenance, 02/25/23 8:30:00 AM EDT, Partial fill upon patient request if the prescription is for a schedule II opioid drug. Start Date: 02/25/23 Status: Ordered Repeat number: 1 Aimovig SureClick Subcutaneous Infusion, Every 28 days, 0 Refills, Maintenance, 08/19/20 3:26:00 PM EDT Start Date: 08/19/20 Status: Ordered Repeat number: 1 albuterol 0.042% inhalation solution 3 mL = 1.25 mg, Neb, 3 times a day, 0 Refills, Maintenance, 08/19/20 3:24:00 PM EDT Start Date: 08/19/20 Status: Ordered Repeat number: 1 apixaban 2.5 mg oral tablet = 2.5 mg, By Mouth, 2 times a day, # 60 tablet, 0 Refills, Maintenance, 10/11/23 7:49:00 AM EST, Tablet, [facility], Partial fill upon patient request if the prescription is for a schedule II opioid drug., 160, cm, 10/05/23 14:24:00 EST, Height, 92.4, kg, 10/10/23 13:13:00 EST, Dry Weight Start Date: 10/11/23 Stop Date: 11/10/23 Status: Ordered Quantity: 60.0 Unit: tablet Repeat number: 1 celecoxib 200 mg oral capsule = 200 mg, By Mouth, Daily, # 30 capsule, 0 Refills, Maintenance, 10/11/23 7:47:00 AM EST, Capsule, [facility], Partial fill upon patient request if the prescription is for a schedule II opioid drug., 160, cm, 10/05/23 14:24:00 EST, Height, 92.4, kg, 10/10/23 13:13:00 EST, Dry Weight Start Date: 10/11/23 Stop Date: 11/10/23 Status: Ordered Quantity: 30.0 Unit: capsule Repeat number: 1 docusate sodium 100 mg oral capsule 1 capsule = 100 mg, By Mouth, 2 times a day, # 60 capsule, 0 Refills, Maintenance, 10/11/23 7:50:00 AM EST, Capsule, [facility], Partial fill upon patient request if the prescription is for a schedule II opioid drug., 160, cm, 10/05/23 14:24:00 EST, Height, 92.4, kg, 10/10/23 13:13:00 EST, Dry Weight Start Date: 10/11/23 Stop Date: 11/10/23 Status: Ordered Quantity: 60.0 Unit: capsule Repeat number: 1 duloxetine 60 mg oral enteric coated capsule = 60 mg, By Mouth, Daily, 0 Refills, Maintenance, 10/11/23 7:53:00 AM EST, Capsule, Partial fill upon patient request if the prescription is for a schedule II opioid drug. Start Date: 10/11/23 Status: Ordered Repeat number: 1 esomeprazole 20 mg oral enteric coated capsule 1 capsule = 20 mg, By Mouth, Daily, # 30 capsule, 0 Refills, Maintenance, 10/05/23 3:10:00 PM EST, EC Capsule, Partial fill upon patient request if the prescription is for a schedule II opioid drug. Start Date: 10/05/23 Status: Ordered Quantity: 30.0 Unit: capsule Repeat number: 1 Flonase 50 mcg/inh nasal spray Daily, 0 Refills, Maintenance, 08/19/20 3:30:00 PM EDT Start Date: 08/19/20 Status: Ordered Repeat number: 1 Gemtesa 75 mg oral tablet See Instructions, TAKE 1 TABLET BY MOUTH EVERY DAY, # 90 tablet, 1 Refills, Maintenance, 05/10/24 11:30:00 AM EDT, [facility], 160, cm, 10/05/23 14:24:00 EST, Height, 92.4, kg, 10/10/23 13:13:00 EST, Dry Weight Start Date: 05/10/24 Status: Ordered Quantity: 90.0 Unit: tablet Repeat number: 1 hydrOXYzine pamoate 25 mg oral capsule 1 capsule = 25 mg, By Mouth, 2 times a day, PRN Anxiety, 0 Refills, Maintenance, 02/25/23 8:30:00 AMEDT, Capsule, Partial fill upon patient request if the prescription is for a schedule II opioid drug. Start Date: 02/25/23 Status: Ordered Repeat number: 1 Lyrica 25 mg oral capsule 3 capsule = 75 mg, By Mouth, 3 times a day, 0 Refills, Maintenance, 02/25/23 8:30:00 AM EDT, Capsule, Partial fill upon patient request if the prescription is for a schedule II opioid drug. Start Date: 02/25/23 Status: Ordered Repeat number: 1 MiraLax Powder 1 pack/packet = 17 Gm, By Mouth, Daily, PRN Constipation, 0 Refills, Maintenance, 02/25/23 8:31:00 AM EDT, Powder, Partial fill upon patient request if the prescription is for a schedule II opioid drug. Start Date: 02/25/23 Status: Ordered Repeat number: 1 Nebulizer/Compressor See Instructions, Maintenance, 01/09/15 8:33:59 AM EST, Compound Start Date: 01/09/15 Status: Ordered Repeat number: 1 ProAir HFA 2 puffs, Inhalation, 4 times a day, 0 Refills, Maintenance, 07/03/14 10:26:31 AM EDT Start Date: 07/03/14 Status: Ordered Repeat number: 1 Singulair 10 mg oral tablet 10 mg, 1, tablet, By Mouth, Daily at bedtime, Refills 0, Maintenance, 02/25/23 8:32:00 AM EDT, Partial fill upon patient request if the prescription is for a schedule II opioid drug. Start Date: 02/25/23 Status: Ordered Repeat number: 1 Symbicort 160mcg/4.5mcg Inhaler 2, puffs, Inhalation, 2 times a day, Refills 0, Maintenance, 02/24/23 11:06:00 AM EDT Start Date: 02/24/23 Status: Ordered Repeat number: 1 Ubrelvy 100 mg oral tablet 1 tablet = 100 mg, By Mouth, Once, PRN as needed for migraine headache, may repeat dose in 2 hours if needed, # 2 tablet, 0 Refills, Maintenance, 02/07/23 1:30:00 PM EDT, Tablet, Partial fill upon patient request if the prescription is for a schedule II opioid drug. Start Date: 02/07/23 Status: Ordered Quantity: 2.0 Unit: tablet Repeat number: 1 verapamil 120 mg oral capsule, extended release 1 capsule = 120 mg, By Mouth, Daily, 0 Refills, Maintenance, 08/19/20 3:27:00 PM EDT Start Date: 08/19/20 Status: Ordered Repeat number: 1 Zofran 4 mg oral tablet 1 tablet = 4 mg, By Mouth, every 6-8 hours, 0 Refills, Maintenance, 07/26/21 12:44:00 PM EDT, Partial fill upon patient request if the prescription is for a schedule II opioid drug. Start Date: 07/26/21 Status: Ordered Repeat number: 1 Problem List Condition Confirmation Course Effective Dates Status H ealth Status Informant Asthma Confirmed Active COVID-19 Confirmed Active Female bladder prolapse Confirmed Active Depression Confirmed Active Fibromyalgia Confirmed Active GERD (gastroesophageal reflux disease) Confirmed Active HTN (hypertension) Confirmed Active Kidney stones Confirmed Active Migraines Confirmed Active Neuropathy of both feet Confirmed Active KRISTEN (obstructive sleep apnea) Confirmed Active Primary osteoarthritis of left knee Confirmed Active Primary osteoarthritis of right knee Confirmed Active Sarcoidosis Confirmed Active Severe obesity (BMI 35.0-39.9) with comorbidity Confirmed Active Sjogren's syndrome Confirmed Active Social History Social History Type Response Smoking Status Never (less than 100 in lifetime) entered on: 02/07/23 Sex Sex Representation Female (finding) Patient Care team information Care Team Personnel Name: Ruth Randolph RN Position: S RN Member Role: Primary Care Nurse Name: Doretha Lovett RN Position: [facility] SN RN Member Role: Primary Care Nurse Name: Ricki Rooney DO Position: [facility] Outreach Member Role: PCP Address: [address] [place] [address] Telecom: Name: Tahira Barcenas RN Position: [facility] RN Member Role: Primary Care Nurse Name: Brina Fuller RN Position: [facility] RN Member Role: Primary Care Nurse Name: Nicole Diop RN Position: [facility] RN Member Role: Primary Care Nurse Care Team Related Persons Name: STACI GANN Name: SEAN ROJAS Insurance Providers Guarantor name: [facility] Plan Information #: 1 Payer: [facility] [employer]/[facility] Member Number: NA Policy Number: NA Group Number: NA
== END 2025-01-14 15:38 | disposition home or self-care (01) ==
LOC: HO.PMC 14:12
PROVIDERS: Visit Provider Nurse Practitioner Family
DX: G89.4 Chronic pain syndrome (principal); M54.2 Cervicalgia; M54.9 Dorsalgia, unspecified; G89.29 Other chronic pain; M47.816 Spondylosis without myelopathy or radiculopathy, lumbar region; M48.061 Spinal stenosis, lumbar region without neurogenic claudication; R20.2 Paresthesia of skin; M79.18 Myalgia, other site; M79.605 Pain in left leg; M79.89 Other specified soft tissue disorders
CPT/HCPCS: 99204; G2211

== ENCOUNTER → 2025-01-14 14:12 | Outpatient (BNVA) | payer OTHER, SELFPAY | PROVIDERS: Visit Provider Nurse Practitioner Family | DX: M54.2 Cervicalgia (principal); M54.9 Dorsalgia, unspecified; M47.816 Spondylosis without myelopathy or radiculopathy, lumbar region; M48.061 Spinal stenosis, lumbar region without neurogenic claudication; M79.18 Myalgia, other site; M79.605 Pain in left leg; R20.2 Paresthesia of skin; M79.89 Other specified soft tissue disorders; G89.29 Other chronic pain | CPT/HCPCS: 99202 ==